=== PATIENT | male | born 1945 | race African-American/Black ===

== ENCOUNTER 2017-09-03 20:25 | Inpatient (IN) | payer MEDICARE, MEDICAID ==
[~2017-09-03] VITALS: Ht 180.3 cm; Wt 97.5 kg
[~2017-09-03 20:25] MED LIST: ABILIFY10 MG ORAL; LINDANE60 ML TP; NORVASC5 MG ORAL
[2017-09-03] MEDS ORDERED: Morphine Sulfate 4mg/ml Inj IVP ONE ×2 (20:45→23:00)
[2017-09-03 21:03] LABS: APPEARANCE,URINE CLEAR; KETONES,URINE NEGATIVE (NEGATIVE); LEUKOCYTE ESTERASE ,URINE NEGATIVE (NEGATIVE); NITRITE,URINE NEGATIVE (NEGATIVE); PH,URINE 6 (4.5-8.0); PROTEIN,URINE 3+ (NEGATIVE); UROBILINOGEN,URINE NORMAL MG/DL (0.0-1.0)
[2017-09-03 21:06] LABS: BASOPHILS % (AUTO) 0.2 % (0.0-2.0); LYMPHOCYTES % (AUTO) 10.1 % (20.0-45.0); MEAN CORPUSCULAR HEMOGLOBIN 23.6 PG (27.0-31.0); MEAN CORPUSCULAR HGB CONC 30.3 G/DL (32.0-36.0); MEAN CORPUSCULAR VOLUME 78 FL (80-99); MEAN PLATELET VOLUME 6.1 FL (6.5-10.1); MONOCYTES % (AUTO) 5.2 % (1.0-10.0); NEUTROPHILS % (AUTO) 84.6 % (45.0-75.0); PLATELET COUNT 428 K/UL (150-450); RED CELL DISTRIBUTION WIDTH 16.9 % (11.6-14.8); WHITE BLOOD COUNT 9.7 K/UL (4.8-10.8)
[2017-09-03 21:09] LABS: BACTERIA,URINE FEW /HPF; YEAST,URINE FEW /HPF
[2017-09-03 21:20] LABS: ANION GAP 12 mmol/L (5-15); CALCIUM 9.3 MG/DL (8.5-10.1); CARBON DIOXIDE 24 MMOL/L (21-32); CHLORIDE 102 MMOL/L (98-107); CREATININE 1.3 MG/DL (0.55-1.30); POTASSIUM 3.7 MMOL/L (3.5-5.1); SODIUM 138 MMOL/L (136-145)
[2017-09-03 21:24] LABS: ALANINE AMINOTRANSFERASE 45 U/L (12-78); ALBUMIN/GLOBULIN RATIO 0.8 (1.0-2.7); ASPARTATE AMINO TRANSFERASE 45 U/L (15-37); LIPASE 65 U/L (73-393); TOTAL PROTEIN 7.9 G/DL (6.4-8.2)
[2017-09-03] MEDS ORDERED: Mylanta II UD 30ml ORAL PRN (23:45)
[2017-09-03] MEDS ORDERED: Metoclopramide 10mg/2ml Inj IVP PRN (23:45)
[2017-09-03] MEDS ORDERED: Morphine Sulfate 2mg/ml Inj IVP PRN (23:45)
[2017-09-04] VITALS (7 sets, daily range): BP systolic 155–188; BP diastolic 70–101
[2017-09-04] MEDS ORDERED: Morphine Sulfate 4mg/ml Inj IVP ONE (00:15)
[2017-09-04] MEDS ORDERED: LORazepam Inj 2mg/ml 1ml IV ONE (00:15)
[2017-09-04] MEDS ORDERED: CYMBALTA30 MG ORAL (00:17)
[2017-09-04] MEDS ORDERED: DIOVAN80 MG ORAL (00:17)
[2017-09-04] MEDS: D5 1/2NS 1,000 ML IV SCH ×2 (00:21→12:53)
--- NOTE | 2017-09-04 04:26 | Emergency Room Report ---
History of Present Illness General Chief Complaint: Abdominal Pain Source: Patient Present Illness HPI Patient had laparoscopic cholecystectomy earlier this morning After that the patient had gone to [place] with urinary retention And now patient presents with increased abdominal pain Patient denies any vomiting Denies any chest pain or short of breath Pain is fairly diffuse 4/10 Denies any fevers or chills Denies any fall or trauma Allergies: Coded Allergies: No Known Allergies (Unverified , 08/18/13) Patient History Past Medical History: see triage record Pertinent Family History: none Reviewed Nursing Documentation: PMH: Agreed, PSxH: Agreed Nursing Documentation-PMH Hx Cardiac Problems: Yes Hx Hypertension: Yes Hx Cancer: No Hx Gastrointestinal Problems: Yes - CHOLECYSTECTOMY TODAY (09-03-17) Hx Neurological Problems: Yes Hx Cerebrovascular Accident: Yes Hx Dizziness: Yes Hx Syncope: Yes Hx Headaches: Yes Hx Weakness: Yes Review of Systems All Other Systems: negative except mentioned in HPI Physical Exam Vital Signs Date Time Temp Pulse Resp B/P (MAP) Pulse Ox O2 Delivery O2 Flow Rate FiO2 09/03/17 20:27 98.2 92 18 189/93 92 Room Air 09/04/17 01:04 2.0 Sp02 EP Interpretation: reviewed, normal General Appearance: well appearing, no apparent distress Head: normocephalic, atraumatic Eyes: bilateral eye PERRL, bilateral eye EOMI ENT: hearing grossly normal, normal pharynx, TMs + canals normal, uvula midline Neck: full range of motion, supple, no meningismus, no bony tend Respiratory: lungs clear, normal breath sounds, no rhonchi, no respiratory distress, no retraction, no accessory muscle use Cardiovascular #1: normal peripheral pulses, regular rate, rhythm, no edema, no gallop, no JVD, no murmur Gastrointestinal: normal bowel sounds, non tender, soft, no mass, no organomegaly, non-distended, no guarding, no hernia, no pulsatile mass, no rebound, other - Evidence of abdominal recent surgery with laparoscopic pathology Genitourinary: no CVA tenderness Musculoskeletal: normal inspection Neurologic: oriented x3, responsive, voice writing reporter III-XII nml as tested, motor strength/ tone normal, sensory intact Psychiatric: mood/affect normal Skin: normal color, no rash, warm/dry, palpation normal Lymphatic: normal inspection, no adenopathy Medical Decision Making Diagnostic Impression: Primary Impression: Abdominal pain Additional Impression: Urinary retention ER Course With the history exam and presentation, multiple differentials considered, including but not limited to appendicitis, gastritis, cholecystitis, diverticulitis Secondary abscess and infection also considered given recent instrumentation Patient's CT initially read as scattered pockets of gas and concern for perforation in the absence of recent surgery however the patient has had recent surgery Pain is significantly better controlled given the multiple comorbidities along with multiple problems after his surgery the patient is admitted for further care, Labs Test 09/03/17 20:40 09/03/17 20:55 White Blood Count 9.7 K/UL (4.8-10.8) Red Blood Count 5.30 M/UL (4.70-6.10) Hemoglobin 12.5 G/DL (14.2-18.0) Hematocrit 41.4 % (42.0-52.0) Mean Corpuscular Volume 78 FL (80-99) Mean Corpuscular Hemoglobin 23.6 PG (27.0-31.0) Mean Corpuscular Hemoglobin Concent 30.3 G/DL (32.0-36.0) Red Cell Distribution Width 16.9 % (11.6-14.8) Platelet Count 428 K/UL (150-450) Mean Platelet Volume 6.1 FL (6.5-10.1) Neutrophils (%) (Auto) 84.6 % (45.0-75.0) Lymphocytes (%) (Auto) 10.1 % (20.0-45.0) Monocytes (%) (Auto) 5.2 % (1.0-10.0) Eosinophils (%) (Auto) 0.0 % (0.0-3.0) Basophils (%) (Auto) 0.2 % (0.0-2.0) Sodium Level 138 MMOL/L (136-145) Potassium Level 3.7 MMOL/L (3.5-5.1) Chloride Level 102 MMOL/L (98-107) Carbon Dioxide Level 24 MMOL/L (21-32) Anion Gap 12 mmol/L (5-15) Blood Urea Nitrogen 12 mg/dL (7-18) Creatinine 1.3 MG/DL (0.55-1.30) Estimat Glomerular Filtration Rate mL/min (>60) Glucose Level 192 MG/DL (74-106) Calcium Level 9.3 MG/DL (8.5-10.1) Total Bilirubin 0.6 MG/DL (0.2-1.0) Aspartate Amino Transf (AST/SGOT) 45 U/L (15-37) Alanine Aminotransferase (ALT/SGPT) 45 U/L (12-78) Alkaline Phosphatase 139 U/L (46-116) Total Protein 7.9 G/DL (6.4-8.2) Albumin 3.6 G/DL (3.4-5.0) Globulin 4.3 g/dL Albumin/Globulin Ratio 0.8 (1.0-2.7) Lipase 65 U/L (73-393) Urine Color Pale yellow Urine Appearance Clear Urine pH 6 (4.5-8.0) Urine Specific [place] 1.015 (1.005-1.035) Urine Protein 3+ (NEGATIVE) Urine Glucose (UA) 1+ (NEGATIVE) Urine Ketones Negative (NEGATIVE) Urine Occult Blood 5+ (NEGATIVE) Urine Nitrite Negative (NEGATIVE) Urine Bilirubin Negative (NEGATIVE) Urine Urobilinogen Normal MG/DL (0.0-1.0) Urine Leukocyte Esterase Negative (NEGATIVE) Urine RBC 5-10 /HPF (0 - 0) Urine WBC 2-4 /HPF (0 - 0) Urine Squamous Epithelial Cells None /LPF (NONE/OCC) Urine Bacteria Few /HPF (NONE) Urine Yeast Few /HPF (NONE) Rhythm Strip Diag. Results EP Interpretation: yes Rate: 68 Rhythm: NSR, no PVC's, no ectopy Other X-Ray Diagnostic Results Other X-Ray Diagnostic Results : X-Ray ordered: abdomen # of Views/Limited Vs Complete: 2 View Indication: Pain EP Interpretation: Yes Interpretation: no dislocation, no soft tissue swelling, no fractures, nonspecific bowel gas, no sbo Impression: No acute disease Electronically Signed by: Luzma Mayers DO CT/MRI/US Diagnostic Results CT/MRI/US Diagnostic Results : Impression CT abdomen pelvis: Scattered tiny pockets of gas suggests hollow viscus perforation and abscess of recent surgery, moderate amount of posterior atelectasis, right inguinal hernia, colonic diverticulosis Last Vital Signs Date Time Temp Pulse Resp B/P (MAP) Pulse Ox O2 Delivery O2 Flow Rate FiO2 09/04/17 01:05 98.2 86 18 160/72 97 Nasal Cannula 2.0 Status: improved Disposition: ADMITTED INPATIENT Condition: Serious Referrals: NON PHYSICIAN (PCP) LUZMA MAYERS D.O. Sep 04, 2017 04:26
[2017-09-04] MEDS: ARIPiprazole 10mg tab ORAL SCH (07:48)
[2017-09-04] MEDS: Pantoprazole Inj IV SCH (07:49)
[2017-09-04] MEDS: Heparin 5000 units/ml inj SUBQ SCH ×2 (07:51→21:52)
[2017-09-04 08:12] LABS: ALANINE AMINOTRANSFERASE 47 U/L (12-78); ALBUMIN/GLOBULIN RATIO 0.9 (1.0-2.7); AMYLASE 29 U/L (25-115); ANION GAP 11 mmol/L (5-15); ASPARTATE AMINO TRANSFERASE 40 U/L (15-37); CALCIUM 9.6 MG/DL (8.5-10.1); CARBON DIOXIDE 27 MMOL/L (21-32); CHLORIDE 100 MMOL/L (98-107); LIPASE 56 U/L (73-393); SODIUM 138 MMOL/L (136-145); TOTAL PROTEIN 8.2 G/DL (6.4-8.2)
[2017-09-04 08:40] LABS: BASOPHILS % (AUTO) 0.6 % (0.0-2.0); LYMPHOCYTES % (AUTO) 16.8 % (20.0-45.0); MEAN CORPUSCULAR HEMOGLOBIN 24.4 PG (27.0-31.0); MEAN CORPUSCULAR HGB CONC 31.2 G/DL (32.0-36.0); MEAN CORPUSCULAR VOLUME 78 FL (80-99); MEAN PLATELET VOLUME 5.8 FL (6.5-10.1); MONOCYTES % (AUTO) 8.6 % (1.0-10.0); PLATELET COUNT 364 K/UL (150-450); RED BLOOD COUNT 5.59 M/UL (4.70-6.10); RED CELL DISTRIBUTION WIDTH 16.9 % (11.6-14.8); WHITE BLOOD COUNT 15.2 K/UL (4.8-10.8)
[2017-09-04] MEDS: LORazepam Inj 2mg/ml 1ml IV PRN ×2 (09:01→14:12)
[2017-09-04] MEDS: Morphine Sulfate 4mg/ml Inj IVP PRN ×2 (12:51→19:30)
--- NOTE | 2017-09-04 13:28 | Consultation ---
History of Present Illness General Date patient seen: Sep 04, 2017 Chief Complaint: Abdominal Pain Reason for Consultation: abdomina pain Present Illness HPI 72 year old male presented with abdominal pain. Patient seen, chart reviewed, history reviewed. Patient had uncomplicated elective lap erlin yesterday. was discharged home post procedure. later in evening developed lower abdominal pain and discomfort. went to [facility] for evaluation and was found to have urinary retention. june was placed and patient experienced immediate resolution. patient was sent home but while at home began to abdominal distention and pain. he came to [place] ED for evaluation. Surgery called to evaluate. Currently states he feels better but still experiencing some abdominal discomfort no n/v/f/c. no flatus or BM today. decreased appetite Allergies: Coded Allergies: No Known Allergies (Unverified , 08/18/13) Medication History Scheduled Amlodipine Besylate (Norvasc), 5 MG ORAL DAILY, (Reported) Aripiprazole* (Abilify*), 20 MG ORAL DAILY, (Reported) Duloxetine Hcl* (Cymbalta*), 30 MG ORAL DAILY, (Reported) Valsartan (Diovan), 160 MG ORAL DAILY, (Reported) Patient History History Provided By: Patient, Medical Record Healthcare decision maker Resuscitation status Full Code Advanced Directive on File Past Medical/Surgical History Past Medical/Surgical History: (1) syncope (2) Bradycardia (3) dermatitis, likely scabies (4) Urinary retention (5) Abdominal pain Review of Systems Constitutional: Denies: no symptoms, see HPI, chills, sweats, fever, malaise, weakness, other Eye: Denies: no symptoms, see HPI, eye pain, blurred vision, tearing, double vision, nose pain, nose congestion, acuity changes, discharge, other ENT: Denies: no symptoms, see HPI, ear pain, ear discharge, nose pain, nose congestion, throat pain, throat swelling, mouth pain, hearing loss, nasal discharge, other Respiratory: Denies: no symptoms, see HPI, cough, orthopnea, shortness of breath, stridor, wheezing, SON, sputum, other Cardiovascular: Denies: no symptoms, see HPI, chest pain, edema, palpitations, syncope, PND, other Gastrointestinal: Reports: abdominal pain, constipation Genitourinary: Denies: no symptoms, see HPI, discharge, dysuria, frequency, hematuria, pain, retention, incontinence, urgency, vag bleed/dc, other Musculoskeletal: Denies: no symptoms, see HPI, back pain, gout, joint pain, joint swelling, muscle pain, muscle stiffness, other Skin: Denies: no symptoms, see HPI, rash, change in color, change in hair/nails , dryness, lesions, other Psychiatric: Denies: no symptoms, see HPI, prior hx, anxiety, depressed feelings, emotional problems, SI, HI, hallucinations, other Neurological: Denies: no symptoms, see HPI, headache, numbness, paresthesia, seizure, tingling, tremors, focal weakness, syncope, dizziness, other Endocrine: Denies: no symptoms, see HPI, excessive sweating, flushing, intolerance to temperature, increased thirst, increased urine, unexplained weight loss, other Hematologic/Lymphatic: Denies: no symptoms, see HPI, anemia, blood clots, easy bleeding, easy bruising, swollen glands, diathesis, other Physical Exam General Appearance: no apparent distress, alert Lines, tubes and drains: peripheral HEENT: normocephalic, atraumatic, PERRL Neck: supple, normal inspection Respiratory/Chest: normal breath sounds, no respiratory distress, no accessory muscle use Cardiovascular/Chest: normal peripheral pulses, normal rate Abdomen: soft, no organomegaly, no mass, hypoactive bowel sounds, other - incisional tenderness. incisions c/d/i. Extremities: normal inspection Skin Exam: normal pigmentation Neurologic: alert, oriented x 3 Last 24 Hour Vital Signs Date Time Temp Pulse Resp B/P (MAP) Pulse Ox O2 Delivery O2 Flow Rate FiO2 09/04/17 12:00 Nasal Cannula 2.0 09/04/17 11:35 98.1 72 20 169/70 96 09/04/17 08:31 09/04/17 08:18 97.6 09/04/17 08:00 Nasal Cannula 2.0 09/04/17 08:00 97.9 75 21 188/85 94 09/04/17 07:49 62 172/73 09/04/17 04:00 97.6 62 18 172/73 93 Nasal Cannula 09/04/17 01:05 98.2 86 18 160/72 97 Nasal Cannula 2.0 09/04/17 01:04 98.2 84 18 160/72 97 Nasal Cannula 2.0 09/04/17 00:41 176/82 09/04/17 00:14 98.2 87 18 168/101 93 Room Air 09/03/17 20:27 98.2 92 18 189/93 92 Room Air Intake and Output 09/04/17 09/05/17 19:00 07:00 Intake Total 225 ml Balance 225 ml Intake IV Total 225 ml Laboratory Tests Test 09/03/17 20:40 09/03/17 20:55 09/04/17 07:15 White Blood Count 9.7 K/UL (4.8-10.8) 15.2 K/UL (4.8-10.8) #H Red Blood Count 5.30 M/UL (4.70-6.10) 5.59 M/UL (4.70-6.10) Hemoglobin 12.5 G/DL (14.2-18.0) L 13.6 G/DL (14.2-18.0) L Hematocrit 41.4 % (42.0-52.0) L 43.7 % (42.0-52.0) Mean Corpuscular Volume 78 FL (80-99) L 78 FL (80-99) L Mean Corpuscular Hemoglobin 23.6 PG (27.0-31.0) L 24.4 PG (27.0-31.0) L Mean Corpuscular Hemoglobin Concent 30.3 G/DL (32.0-36.0) L 31.2 G/DL (32.0-36.0) L Red Cell Distribution Width 16.9 % (11.6-14.8) H 16.9 % (11.6-14.8) H Platelet Count 428 K/UL (150-450) 364 K/UL (150-450) Mean Platelet Volume 6.1 FL (6.5-10.1) L 5.8 FL (6.5-10.1) L Neutrophils (%) (Auto) 84.6 % (45.0-75.0) H 74.0 % (45.0-75.0) Lymphocytes (%) (Auto) 10.1 % (20.0-45.0) L 16.8 % (20.0-45.0) L Monocytes (%) (Auto) 5.2 % (1.0-10.0) 8.6 % (1.0-10.0) Eosinophils (%) (Auto) 0.0 % (0.0-3.0) 0.0 % (0.0-3.0) Basophils (%) (Auto) 0.2 % (0.0-2.0) 0.6 % (0.0-2.0) Sodium Level 138 MMOL/L (136-145) 138 MMOL/L (136-145) Potassium Level 3.7 MMOL/L (3.5-5.1) 4.0 MMOL/L (3.5-5.1) Chloride Level 102 MMOL/L (98-107) 100 MMOL/L (98-107) Carbon Dioxide Level 24 MMOL/L (21-32) 27 MMOL/L (21-32) Anion Gap 12 mmol/L (5-15) 11 mmol/L (5-15) Blood Urea Nitrogen 12 mg/dL (7-18) 11 mg/dL (7-18) Creatinine 1.3 MG/DL (0.55-1.30) 1.0 MG/DL (0.55-1.30) Estimat Glomerular Filtration Rate mL/min (>60) mL/min (>60) Glucose Level 192 MG/DL (74-106) H 126 MG/DL (74-106) H Calcium Level 9.3 MG/DL (8.5-10.1) 9.6 MG/DL (8.5-10.1) Total Bilirubin 0.6 MG/DL (0.2-1.0) 0.8 MG/DL (0.2-1.0) Aspartate Amino Transf (AST/SGOT) 45 U/L (15-37) H 40 U/L (15-37) H Alanine Aminotransferase (ALT/SGPT) 45 U/L (12-78) 47 U/L (12-78) Alkaline Phosphatase 139 U/L (46-116) H 141 U/L (46-116) H Total Protein 7.9 G/DL (6.4-8.2) 8.2 G/DL (6.4-8.2) Albumin 3.6 G/DL (3.4-5.0) 3.8 G/DL (3.4-5.0) Globulin 4.3 g/dL 4.4 g/dL Albumin/Globulin Ratio 0.8 (1.0-2.7) L 0.9 (1.0-2.7) L Lipase 65 U/L (73-393) L 56 U/L (73-393) L Urine Color Pale yellow Urine Appearance Clear Urine pH 6 (4.5-8.0) Urine Specific [place] 1.015 (1.005-1.035) Urine Protein 3+ (NEGATIVE) H Urine Glucose (UA) 1+ (NEGATIVE) H Urine Ketones Negative (NEGATIVE) Urine Occult Blood 5+ (NEGATIVE) H Urine Nitrite Negative (NEGATIVE) Urine Bilirubin Negative (NEGATIVE) Urine Urobilinogen Normal MG/DL (0.0-1.0) Urine Leukocyte Esterase Negative (NEGATIVE) Urine RBC 5-10 /HPF (0 - 0) H Urine WBC 2-4 /HPF (0 - 0) Urine Squamous Epithelial Cells None /LPF (NONE/OCC) Urine Bacteria Few /HPF (NONE) Urine Yeast Few /HPF (NONE) H Activated Partial Thromboplast Time 26 SEC (23-33) Amylase Level 29 U/L (25-115) Microbiology Date/Time Source Procedure Growth Status 09/03/17 20:55 Urine,Clean Catch Urine Culture - Preliminary NO GROWTH Resulted Height (Feet): 5 Height (Inches): 11.00 Weight (Pounds): 215 Medications Current Medications Medications (Trade) Dose Ordered Sig/Ritu Route PRN Reason Start Time Stop Time Status Last Admin Dose Admin Acetaminophen (Tylenol) 650 mg Q4H PRN ORAL fever 09/03/17 23:45 10/03/17 23:44 Al Hydroxide/Mg Hydroxide (Mylanta II) 30 ml Q6H PRN ORAL dyspepsia 09/03/17 23:45 10/03/17 23:44 Amlodipine Besylate (Norvasc) 5 mg DAILY ORAL 09/04/17 09:00 10/04/17 08:59 09/04/17 07:49 Aripiprazole (Abilify) 20 mg DAILY ORAL 09/04/17 09:00 10/04/17 08:59 09/04/17 07:48 Dextrose (Dextrose 50%) STAT PRN IV Hypoglycemia 09/03/17 23:45 10/03/17 23:44 Dextrose/Sodium Chloride 1,000 ml @ 75 mls/hr [id number] IV 09/03/17 23:31 10/03/17 23:30 09/04/17 12:53 Diphenhydramine HCl (Benadryl) 25 mg Q6H PRN ORAL Itching/Pruritis 09/03/17 23:45 10/03/17 23:44 Heparin Sodium (Porcine) (Heparin 5000 units/ml) 5,000 units EVERY 12 HOURS SUBQ 09/04/17 09:00 10/04/17 08:59 09/04/17 07:51 Lorazepam (Ativan 2mg/ml 1ml) 1 mg EVERY 4 HOURS PRN IV agitation 09/03/17 23:45 09/10/17 23:44 09/04/17 09:01 Metoclopramide HCl (Reglan) 10 mg Q6H PRN IVP servere nauasea 09/03/17 23:45 10/03/17 23:44 Morphine Sulfate (Morphine Sulfate) 4 mg Q4H PRN IVP Severe Pain (Pain Scale 7-10) 09/04/17 10:15 09/11/17 10:14 09/04/17 12:51 Nitroglycerin (Ntg) 0.4 mg Q5M X 3 DOSES PRN SL Prn Chest Pain 09/03/17 23:45 10/03/17 23:44 Ondansetron HCl (Zofran) 4 mg Q6H PRN IVP Nausea & Vomiting 09/03/17 23:45 10/03/17 23:44 Pantoprazole (Protonix) 40 mg DAILY IV 09/04/17 09:00 10/04/17 08:59 09/04/17 07:49 Polyethylene Glycol (Miralax) 17 gm HSPRN PRN ORAL Constipation 09/03/17 23:45 10/03/17 23:44 Promethazine HCl (Phenergan) 25 mg EVERY 8 HOURS PRN IV refractory nausea 09/04/17 08:15 10/03/17 23:44 Temazepam (Restoril) 15 mg HSPRN PRN ORAL Insomnia 09/03/17 23:45 09/10/17 23:44 Assessment/Plan Problem List: (1) Abdominal pain Assessment & Plan: 72M with abdominal dillon. had lap erlin yesterday at outside facility. urinary retention resolved with june. now with abdominal pain. CT reviewed. given recent surgery free air is anticipated and unlikely bowel perforation. He is currently afebrile, HD stable, and exam only with incisional tenderness and mild distention. he does have hypoactive bowel sounds. leukocytosis likely reactive post op. likely ileus post op -NPO -IV fluids -ambulate and OOB -await return of bowel function. -repeat labs in am thank you for this consult. will follow with recs. ICD Codes: R10.9 - Abdominal pain SNOMED: 53822727 Status: stable ShashiMarcel arroyo Sep 04, 2017 13:28
--- NOTE | 2017-09-04 14:27 | History and Physical ---
History of Present Illness General Date patient seen: Sep 04, 2017 Reason for Hospitalization: Abdominal Pain Present Illness HPI 72 year old male with hx of HTN, psychosis had laparoscopic cholecystectomy yesterday morning After that the patient had gone to [place] with urinary retention, where he got a [place] then he presented [place] [facility] [place] with increased abdominal pain. Pt is admitted for intractable abdominal pain. Allergies: Coded Allergies: No Known Allergies (Unverified , 08/18/13) Medication History Scheduled Amlodipine Besylate (Norvasc), 5 MG ORAL DAILY, (Reported) Aripiprazole* (Abilify*), 20 MG ORAL DAILY, (Reported) Duloxetine Hcl* (Cymbalta*), 30 MG ORAL DAILY, (Reported) Valsartan (Diovan), 160 MG ORAL DAILY, (Reported) Patient History Healthcare decision maker Resuscitation status Full Code Advanced Directive on File Past Medical/Surgical History Past Medical/Surgical History: (1) HTN (hypertension) (2) Psychosis Review of Systems Gastrointestinal: Reports: abdominal pain, vomiting Physical Exam General Appearance: WD/WN Lines, tubes and drains: peripheral, central line HEENT: normocephalic, atraumatic Neck: non-tender, supple Respiratory/Chest: chest wall non-tender, lungs clear Cardiovascular/Chest: normal peripheral pulses, normal rate, regularly irregular Abdomen: normal bowel sounds, non tender Last 24 Hour Vital Signs Date Time Temp Pulse Resp B/P (MAP) Pulse Ox O2 Delivery O2 Flow Rate FiO2 09/04/17 13:21 98.1 09/04/17 12:00 Nasal Cannula 2.0 09/04/17 11:35 98.1 72 20 169/70 96 09/04/17 10:20 96 Nasal Cannula 2.0 28 09/04/17 10:20 Nasal Cannula 2.0 28 09/04/17 08:31 09/04/17 08:18 97.6 09/04/17 08:00 Nasal Cannula 2.0 09/04/17 08:00 97.9 75 21 188/85 94 09/04/17 07:49 62 172/73 09/04/17 04:00 97.6 62 18 172/73 93 Nasal Cannula 09/04/17 01:05 98.2 86 18 160/72 97 Nasal Cannula 2.0 09/04/17 01:04 98.2 84 18 160/72 97 Nasal Cannula 2.0 09/04/17 00:41 176/82 09/04/17 00:14 98.2 87 18 168/101 93 Room Air 09/03/17 20:27 98.2 92 18 189/93 92 Room Air Intake and Output 09/04/17 09/05/17 19:00 07:00 Intake Total 300 ml Output Total 700 ml Balance -400 ml Intake IV Total 300 ml Output Urine Total 700 ml Laboratory Tests Test 09/03/17 20:40 09/03/17 20:55 09/04/17 07:15 White Blood Count 9.7 K/UL (4.8-10.8) 15.2 K/UL (4.8-10.8) #H Red Blood Count 5.30 M/UL (4.70-6.10) 5.59 M/UL (4.70-6.10) Hemoglobin 12.5 G/DL (14.2-18.0) L 13.6 G/DL (14.2-18.0) L Hematocrit 41.4 % (42.0-52.0) L 43.7 % (42.0-52.0) Mean Corpuscular Volume 78 FL (80-99) L 78 FL (80-99) L Mean Corpuscular Hemoglobin 23.6 PG (27.0-31.0) L 24.4 PG (27.0-31.0) L Mean Corpuscular Hemoglobin Concent 30.3 G/DL (32.0-36.0) L 31.2 G/DL (32.0-36.0) L Red Cell Distribution Width 16.9 % (11.6-14.8) H 16.9 % (11.6-14.8) H Platelet Count 428 K/UL (150-450) 364 K/UL (150-450) Mean Platelet Volume 6.1 FL (6.5-10.1) L 5.8 FL (6.5-10.1) L Neutrophils (%) (Auto) 84.6 % (45.0-75.0) H 74.0 % (45.0-75.0) Lymphocytes (%) (Auto) 10.1 % (20.0-45.0) L 16.8 % (20.0-45.0) L Monocytes (%) (Auto) 5.2 % (1.0-10.0) 8.6 % (1.0-10.0) Eosinophils (%) (Auto) 0.0 % (0.0-3.0) 0.0 % (0.0-3.0) Basophils (%) (Auto) 0.2 % (0.0-2.0) 0.6 % (0.0-2.0) Sodium Level 138 MMOL/L (136-145) 138 MMOL/L (136-145) Potassium Level 3.7 MMOL/L (3.5-5.1) 4.0 MMOL/L (3.5-5.1) Chloride Level 102 MMOL/L (98-107) 100 MMOL/L (98-107) Carbon Dioxide Level 24 MMOL/L (21-32) 27 MMOL/L (21-32) Anion Gap 12 mmol/L (5-15) 11 mmol/L (5-15) Blood Urea Nitrogen 12 mg/dL (7-18) 11 mg/dL (7-18) Creatinine 1.3 MG/DL (0.55-1.30) 1.0 MG/DL (0.55-1.30) Estimat Glomerular Filtration Rate mL/min (>60) mL/min (>60) Glucose Level 192 MG/DL (74-106) H 126 MG/DL (74-106) H Calcium Level 9.3 MG/DL (8.5-10.1) 9.6 MG/DL (8.5-10.1) Total Bilirubin 0.6 MG/DL (0.2-1.0) 0.8 MG/DL (0.2-1.0) Aspartate Amino Transf (AST/SGOT) 45 U/L (15-37) H 40 U/L (15-37) H Alanine Aminotransferase (ALT/SGPT) 45 U/L (12-78) 47 U/L (12-78) Alkaline Phosphatase 139 U/L (46-116) H 141 U/L (46-116) H Total Protein 7.9 G/DL (6.4-8.2) 8.2 G/DL (6.4-8.2) Albumin 3.6 G/DL (3.4-5.0) 3.8 G/DL (3.4-5.0) Globulin 4.3 g/dL 4.4 g/dL Albumin/Globulin Ratio 0.8 (1.0-2.7) L 0.9 (1.0-2.7) L Lipase 65 U/L (73-393) L 56 U/L (73-393) L Urine Color Pale yellow Urine Appearance Clear Urine pH 6 (4.5-8.0) Urine Specific [place] 1.015 (1.005-1.035) Urine Protein 3+ (NEGATIVE) H Urine Glucose (UA) 1+ (NEGATIVE) H Urine Ketones Negative (NEGATIVE) Urine Occult Blood 5+ (NEGATIVE) H Urine Nitrite Negative (NEGATIVE) Urine Bilirubin Negative (NEGATIVE) Urine Urobilinogen Normal MG/DL (0.0-1.0) Urine Leukocyte Esterase Negative (NEGATIVE) Urine RBC 5-10 /HPF (0 - 0) H Urine WBC 2-4 /HPF (0 - 0) Urine Squamous Epithelial Cells None /LPF (NONE/OCC) Urine Bacteria Few /HPF (NONE) Urine Yeast Few /HPF (NONE) H Activated Partial Thromboplast Time 26 SEC (23-33) Amylase Level 29 U/L (25-115) Microbiology Date/Time Source Procedure Growth Status 09/03/17 20:55 Urine,Clean Catch Urine Culture - Preliminary NO GROWTH Resulted Height (Feet): 5 Height (Inches): 11.00 Weight (Pounds): 215 Medications Current Medications Medications (Trade) Dose Ordered Sig/Ritu Route PRN Reason Start Time Stop Time Status Last Admin Dose Admin Acetaminophen (Tylenol) 650 mg Q4H PRN ORAL fever 09/03/17 23:45 10/03/17 23:44 Al Hydroxide/Mg Hydroxide (Mylanta II) 30 ml Q6H PRN ORAL dyspepsia 09/03/17 23:45 10/03/17 23:44 Amlodipine Besylate (Norvasc) 5 mg DAILY ORAL 09/04/17 09:00 10/04/17 08:59 09/04/17 07:49 Aripiprazole (Abilify) 20 mg DAILY ORAL 09/04/17 09:00 10/04/17 08:59 09/04/17 07:48 Dextrose (Dextrose 50%) STAT PRN IV Hypoglycemia 09/03/17 23:45 10/03/17 23:44 Dextrose/Sodium Chloride 1,000 ml @ 75 mls/hr [id number] IV 09/03/17 23:31 10/03/17 23:30 09/04/17 12:53 Diphenhydramine HCl (Benadryl) 25 mg Q6H PRN ORAL Itching/Pruritis 09/03/17 23:45 10/03/17 23:44 Heparin Sodium (Porcine) (Heparin 5000 units/ml) 5,000 units EVERY 12 HOURS SUBQ 09/04/17 09:00 10/04/17 08:59 09/04/17 07:51 Lorazepam (Ativan 2mg/ml 1ml) 1 mg EVERY 4 HOURS PRN IV agitation 09/03/17 23:45 09/10/17 23:44 09/04/17 14:12 Metoclopramide HCl (Reglan) 10 mg Q6H PRN IVP servere nauasea 09/03/17 23:45 10/03/17 23:44 Morphine Sulfate (Morphine Sulfate) 4 mg Q4H PRN IVP Severe Pain (Pain Scale 7-10) 09/04/17 10:15 09/11/17 10:14 09/04/17 12:51 Nitroglycerin (Ntg) 0.4 mg Q5M X 3 DOSES PRN SL Prn Chest Pain 09/03/17 23:45 10/03/17 23:44 Ondansetron HCl (Zofran) 4 mg Q6H PRN IVP Nausea & Vomiting 09/03/17 23:45 10/03/17 23:44 Pantoprazole (Protonix) 40 mg DAILY IV 09/04/17 09:00 10/04/17 08:59 09/04/17 07:49 Polyethylene Glycol (Miralax) 17 gm HSPRN PRN ORAL Constipation 09/03/17 23:45 10/03/17 23:44 Promethazine HCl (Phenergan) 25 mg EVERY 8 HOURS PRN IV refractory nausea 09/04/17 08:15 10/03/17 23:44 Temazepam (Restoril) 15 mg HSPRN PRN ORAL Insomnia 09/03/17 23:45 09/10/17 23:44 Assessment/Plan Problem List: (1) Hx laparoscopic cholecystectomy ICD Codes: Z90.49 - Acquired absence of other specified parts of digestive tract SNOMED: 670301244 (2) Urinary retention ICD Codes: R33.9 - Retention of urine, unspecified SNOMED: 052354105 (3) Abdominal pain ICD Codes: R10.9 - Abdominal pain SNOMED: 59467851 (4) Psychosis ICD Codes: F29 - Unspecified psychosis not due to a substance or known physiological condition SNOMED: 74758009 (5) HTN (hypertension) ICD Codes: I10 - Essential (primary) hypertension SNOMED: 95393628 Assessment/Plan NPO GI and surgery evaluation symptomatic treatment check electrolytes IV fluids RHONDA AMOR Sep 04, 2017 14:27
[2017-09-04] MEDS: Ketorolac 30mg Inj IV PRN ×2 (14:35→21:48)
[2017-09-04 15:45] LABS: BASOPHILS % (AUTO) 0.4 % (0.0-2.0); LYMPHOCYTES % (AUTO) 7.9 % (20.0-45.0); MEAN CORPUSCULAR HEMOGLOBIN 24.5 PG (27.0-31.0); MEAN CORPUSCULAR HGB CONC 31.8 G/DL (32.0-36.0); MEAN CORPUSCULAR VOLUME 77 FL (80-99); MEAN PLATELET VOLUME 6.7 FL (6.5-10.1); MONOCYTES % (AUTO) 9.2 % (1.0-10.0); NEUTROPHILS % (AUTO) 82.4 % (45.0-75.0); PLATELET COUNT 418 K/UL (150-450); RED BLOOD COUNT 5.26 M/UL (4.70-6.10); RED CELL DISTRIBUTION WIDTH 16.9 % (11.6-14.8); WHITE BLOOD COUNT 14.3 K/UL (4.8-10.8)
--- NOTE | 2017-09-04 15:55 | GI Initial Consult Note ---
Barbi Matson N.P. 09/04/17 1555: History of Present Illness General Date patient seen: Sep 04, 2017 Time patient seen: 15:48 Reason for Hospitalization: Abdominal Pain Referring physician: RHONDA MEJIA Reason for Consultation: abdomina pain Present Illness HPI 72 year old male presented with abdominal pain. Patient seen, chart reviewed, history reviewed. Patient had uncomplicated elective lap erlin yesterday. was discharged home post procedure. later in evening developed lower abdominal pain and discomfort. went to [facility] for evaluation and was found to have urinary retention. june was placed and patient experienced immediate resolution. patient was sent home but while at home began to abdominal distention and pain. he came to [facility] for evaluation. Surgery called to evaluate. Currently states he feels better but still experiencing some abdominal discomfort no n/v/f/c. no flatus or BM today. decreased appetite GI consulted for abdominal pain. HPI as noted above. Pt seen on floor, awake A&Ox4 NAD with no active s/sx of N/V/D. Noted distend abdomen, tender to touch. S/p lap erlin. AP CT noted to have hollow viscous perforation. Allergies: Coded Allergies: No Known Allergies (Unverified , 08/18/13) Medication History Scheduled Amlodipine Besylate (Norvasc), 5 MG ORAL DAILY, (Reported) Aripiprazole* (Abilify*), 20 MG ORAL DAILY, (Reported) Duloxetine Hcl* (Cymbalta*), 30 MG ORAL DAILY, (Reported) Valsartan (Diovan), 160 MG ORAL DAILY, (Reported) Patient History History Provided By: Patient, Medical Record Healthcare decision maker Resuscitation status Full Code Advanced Directive on File Past Medical/Surgical History Past Medical/Surgical History: (1) syncope (2) Bradycardia (3) dermatitis, likely scabies (4) Urinary retention (5) Abdominal pain Home Meds Reported Medications Duloxetine Hcl* (CYMBALTA*) 30 Mg Capsule.dr, 30 MG ORAL DAILY, CAP 09/04/17 Valsartan (DIOVAN) 80 Mg Tab, 160 MG ORAL DAILY, TAB 09/04/17 Amlodipine Besylate (Norvasc) 5 Mg Tab, 5 MG ORAL DAILY, TAB 10/19/13 Aripiprazole* (ABILIFY*) 10 Mg Tablet, 20 MG ORAL DAILY, TAB 10/19/13 Med list reviewed/reconciled: Yes Allergies: Coded Allergies: No Known Allergies (Unverified , 08/18/13) Patient History History Provided By: Patient, Medical Record Review of Systems All Other Systems: negative except mentioned in HPI Physical Exam Vital Signs Date Time Temp Pulse Resp B/P (MAP) Pulse Ox O2 Delivery O2 Flow Rate FiO2 09/03/17 20:27 98.2 92 18 189/93 92 Room Air 09/04/17 01:04 2.0 09/04/17 10:20 28 Sp02 EP Interpretation: reviewed, normal Labs Laboratory Tests Test 09/03/17 20:40 09/03/17 20:55 09/04/17 07:15 09/04/17 15:15 White Blood Count 9.7 K/UL (4.8-10.8) 15.2 K/UL (4.8-10.8) #H 14.3 K/UL (4.8-10.8) H Red Blood Count 5.30 M/UL (4.70-6.10) 5.59 M/UL (4.70-6.10) 5.26 M/UL (4.70-6.10) Hemoglobin 12.5 G/DL (14.2-18.0) L 13.6 G/DL (14.2-18.0) L 12.9 G/DL (14.2-18.0) L Hematocrit 41.4 % (42.0-52.0) L 43.7 % (42.0-52.0) 40.6 % (42.0-52.0) L Mean Corpuscular Volume 78 FL (80-99) L 78 FL (80-99) L 77 FL (80-99) L Mean Corpuscular Hemoglobin 23.6 PG (27.0-31.0) L 24.4 PG (27.0-31.0) L 24.5 PG (27.0-31.0) L Mean Corpuscular Hemoglobin Concent 30.3 G/DL (32.0-36.0) L 31.2 G/DL (32.0-36.0) L 31.8 G/DL (32.0-36.0) L Red Cell Distribution Width 16.9 % (11.6-14.8) H 16.9 % (11.6-14.8) H 16.9 % (11.6-14.8) H Platelet Count 428 K/UL (150-450) 364 K/UL (150-450) 418 K/UL (150-450) Mean Platelet Volume 6.1 FL (6.5-10.1) L 5.8 FL (6.5-10.1) L 6.7 FL (6.5-10.1) Neutrophils (%) (Auto) 84.6 % (45.0-75.0) H 74.0 % (45.0-75.0) 82.4 % (45.0-75.0) H Lymphocytes (%) (Auto) 10.1 % (20.0-45.0) L 16.8 % (20.0-45.0) L 7.9 % (20.0-45.0) L Monocytes (%) (Auto) 5.2 % (1.0-10.0) 8.6 % (1.0-10.0) 9.2 % (1.0-10.0) Eosinophils (%) (Auto) 0.0 % (0.0-3.0) 0.0 % (0.0-3.0) 0.0 % (0.0-3.0) Basophils (%) (Auto) 0.2 % (0.0-2.0) 0.6 % (0.0-2.0) 0.4 % (0.0-2.0) Sodium Level 138 MMOL/L (136-145) 138 MMOL/L (136-145) Potassium Level 3.7 MMOL/L (3.5-5.1) 4.0 MMOL/L (3.5-5.1) Chloride Level 102 MMOL/L (98-107) 100 MMOL/L (98-107) Carbon Dioxide Level 24 MMOL/L (21-32) 27 MMOL/L (21-32) Anion Gap 12 mmol/L (5-15) 11 mmol/L (5-15) Blood Urea Nitrogen 12 mg/dL (7-18) 11 mg/dL (7-18) Creatinine 1.3 MG/DL (0.55-1.30) 1.0 MG/DL (0.55-1.30) Estimat Glomerular Filtration Rate mL/min (>60) mL/min (>60) Glucose Level 192 MG/DL (74-106) H 126 MG/DL (74-106) H Calcium Level 9.3 MG/DL (8.5-10.1) 9.6 MG/DL (8.5-10.1) Total Bilirubin 0.6 MG/DL (0.2-1.0) 0.8 MG/DL (0.2-1.0) Aspartate Amino Transf (AST/SGOT) 45 U/L (15-37) H 40 U/L (15-37) H Alanine Aminotransferase (ALT/SGPT) 45 U/L (12-78) 47 U/L (12-78) Alkaline Phosphatase 139 U/L (46-116) H 141 U/L (46-116) H Total Protein 7.9 G/DL (6.4-8.2) 8.2 G/DL (6.4-8.2) Albumin 3.6 G/DL (3.4-5.0) 3.8 G/DL (3.4-5.0) Globulin 4.3 g/dL 4.4 g/dL Albumin/Globulin Ratio 0.8 (1.0-2.7) L 0.9 (1.0-2.7) L Lipase 65 U/L (73-393) L 56 U/L (73-393) L Urine Color Pale yellow Urine Appearance Clear Urine pH 6 (4.5-8.0) Urine Specific [place] 1.015 (1.005-1.035) Urine Protein 3+ (NEGATIVE) H Urine Glucose (UA) 1+ (NEGATIVE) H Urine Ketones Negative (NEGATIVE) Urine Occult Blood 5+ (NEGATIVE) H Urine Nitrite Negative (NEGATIVE) Urine Bilirubin Negative (NEGATIVE) Urine Urobilinogen Normal MG/DL (0.0-1.0) Urine Leukocyte Esterase Negative (NEGATIVE) Urine RBC 5-10 /HPF (0 - 0) H Urine WBC 2-4 /HPF (0 - 0) Urine Squamous Epithelial Cells None /LPF (NONE/OCC) Urine Bacteria Few /HPF (NONE) Urine Yeast Few /HPF (NONE) H Activated Partial Thromboplast Time 26 SEC (23-33) Amylase Level 29 U/L (25-115) Lactic Acid Level Pending General Appearance: well appearing, no apparent distress, alert Head: normocephalic EENT: PERRL/EOMI, normal ENT inspection Neck: supple Respiratory: normal breath sounds, no respiratory distress Cardiovascular: normal rate Gastrointestinal: normal inspection, non tender, soft, normal bowel sounds, non -distended, other - surgical incision Rectal: deferred Genitourinary: deferred Musculoskeletal: normal inspection, back normal Neurologic: normal inspection, alert, oriented x3, responsive Psychiatric: normal inspection, judgement/insight normal, memory normal Skin: normal inspection, normal color, no rash, warm/dry, palpation normal, well hydrated Lymphatic: normal inspection, no adenopathy Current Medications Current Medications Medications (Trade) Dose Ordered Sig/Ritu Route PRN Reason Start Time Stop Time Status Last Admin Dose Admin Acetaminophen (Tylenol) 650 mg Q4H PRN ORAL fever 09/03/17 23:45 10/03/17 23:44 Al Hydroxide/Mg Hydroxide (Mylanta II) 30 ml Q6H PRN ORAL dyspepsia 09/03/17 23:45 10/03/17 23:44 Amlodipine Besylate (Norvasc) 5 mg DAILY ORAL 09/04/17 09:00 10/04/17 08:59 09/04/17 07:49 Aripiprazole (Abilify) 20 mg DAILY ORAL 09/04/17 09:00 10/04/17 08:59 09/04/17 07:48 Dextrose (Dextrose 50%) STAT PRN IV Hypoglycemia 09/03/17 23:45 10/03/17 23:44 Dextrose/Sodium Chloride 1,000 ml @ 75 mls/hr [id number] IV 09/03/17 23:31 10/03/17 23:30 09/04/17 12:53 Diphenhydramine HCl (Benadryl) 25 mg Q6H PRN ORAL Itching/Pruritis 09/03/17 23:45 10/03/17 23:44 Heparin Sodium (Porcine) (Heparin 5000 units/ml) 5,000 units EVERY 12 HOURS SUBQ 09/04/17 09:00 10/04/17 08:59 09/04/17 07:51 Ketorolac Tromethamine (Toradol 30mg) 15 mg Q6H PRN IV Moderate Pain (Pain Scale 4-6) 09/04/17 14:30 09/09/17 14:29 09/04/17 14:35 Lorazepam (Ativan 2mg/ml 1ml) 1 mg EVERY 4 HOURS PRN IV agitation 09/03/17 23:45 09/10/17 23:44 09/04/17 14:12 Metoclopramide HCl (Reglan) 10 mg Q6H PRN IVP servere naraulsea 09/03/17 23:45 10/03/17 23:44 Morphine Sulfate (Morphine Sulfate) 4 mg Q4H PRN IVP Severe Pain (Pain Scale 7-10) 09/04/17 10:15 09/11/17 10:14 09/04/17 12:51 Nitroglycerin (Ntg) 0.4 mg Q5M X 3 DOSES PRN SL Prn Chest Pain 09/03/17 23:45 10/03/17 23:44 Ondansetron HCl (Zofran) 4 mg Q6H PRN IVP Nausea & Vomiting 09/03/17 23:45 10/03/17 23:44 Pantoprazole (Protonix) 40 mg DAILY IV 09/04/17 09:00 10/04/17 08:59 09/04/17 07:49 Polyethylene Glycol (Miralax) 17 gm HSPRN PRN ORAL Constipation 09/03/17 23:45 10/03/17 23:44 Promethazine HCl (Phenergan) 25 mg EVERY 8 HOURS PRN IV refractory nausea 09/04/17 08:15 10/03/17 23:44 Temazepam (Restoril) 15 mg HSPRN PRN ORAL Insomnia 09/03/17 23:45 09/10/17 23:44 GI: Plan Problems: (1) Perforated abdominal viscus (2) Leukocytosis (3) Abdominal pain (4) Hx laparoscopic cholecystectomy (5) Ileus, postoperative Plan fu surgical recs non operative management bowel rest, NPO + IV fluids electrolyte replacement ambulate and OOB pain mgmt imaging studies prn await return of bowel function. repeat labs in am Discussed with Dr. Tyler. Thank you for this patient referral, we will follow. AKIL TYLER 09/05/17 4221: History of Present Illness General Reason for Hospitalization: Abdominal Pain Present Illness Home Meds Reported Medications Duloxetine Hcl* (CYMBALTA*) 30 Mg Capsule.dr, 30 MG ORAL DAILY, CAP 09/04/17 Valsartan (DIOVAN) 80 Mg Tab, 160 MG ORAL DAILY, TAB 09/04/17 Amlodipine Besylate (Norvasc) 5 Mg Tab, 5 MG ORAL DAILY, TAB 10/19/13 Aripiprazole* (ABILIFY*) 10 Mg Tablet, 20 MG ORAL DAILY, TAB 10/19/13 Allergies: Coded Allergies: No Known Allergies (Unverified , 08/18/13) GI: Plan Plan The patient was seen and examined at bedside and all new and available data was reviewed in the patients chart. I agree with the above findings, impression and plan. (Patient seen earlier today. Signature stamp does not reflect patient encounter time.). - MD Huyen Vásquez Anh Horacio Flores Sep 04, 2017 15:55 AKIL TYLER Sep 05, 2017 12:44
[2017-09-04] MEDS ORDERED: Hydromorphone 0.5mg/0.5ml inj IVP ONE (17:05)
--- NOTE | 2017-09-04 20:28 | General Progress Note ---
Progress Note Progress Note surgery: returned to evaluate patient this evening. he has been asking for pain medication consistently when he wakes up from sleep. sleeps well but when he wakes he states lots of pain and needs pain medication. states he is okay right now but at times pain is significant. on exam he agrees that tenderness has improved. no n/v/f/c. +flatus. afebrile, HD stable, no tachycardia, VSS, repeat labs improved. will likely start trail diet tomorrow and if all well d/c tomorrow. I discussed this plan with patient. he expressed that he would very much need a prescription for pain medication upon discharge. when asked, patient states that he was not given any Rx after his surgery and does not have any pain medication at home nor did he have anything after surgery. I'm not sure about this but it is possible as it is also possible that there may have been a misunderstanding or loss of Rx. but if patient did not have anything after surgery I'm not surprised that he was in pain the evening of surgery requiring him to return to ED and this would explain history. will continue to monitor. if stable and improved tomorrow will start diet and plan for d/c will write Rx if needed. continue with current care and management. Marcel Thompson Sep 04, 2017 20:28
[2017-09-05] VITALS (9 sets, daily range): BP systolic 110–212; BP diastolic 59–128
[2017-09-05] MEDS: D5 1/2NS 1,000 ML IV SCH ×2 (00:39→15:31)
[2017-09-05] MEDS: Morphine Sulfate 4mg/ml Inj IVP PRN ×4 (00:39→19:39)
[2017-09-05 08:06] LABS: BASOPHILS % (AUTO) 0.6 % (0.0-2.0); EOSINOPHILS % (AUTO) 0.3 % (0.0-3.0); LYMPHOCYTES % (AUTO) 16.5 % (20.0-45.0); MEAN CORPUSCULAR HEMOGLOBIN 23.2 PG (27.0-31.0); MEAN CORPUSCULAR HGB CONC 29.5 G/DL (32.0-36.0); MEAN CORPUSCULAR VOLUME 78 FL (80-99); MEAN PLATELET VOLUME 6.6 FL (6.5-10.1); MONOCYTES % (AUTO) 8.2 % (1.0-10.0); NEUTROPHILS % (AUTO) 74.6 % (45.0-75.0); PLATELET COUNT 381 K/UL (150-450); RED BLOOD COUNT 5.25 M/UL (4.70-6.10); RED CELL DISTRIBUTION WIDTH 16.5 % (11.6-14.8); WHITE BLOOD COUNT 11.3 K/UL (4.8-10.8)
[2017-09-05 08:19] LABS: AMYLASE 35 U/L (25-115); LIPASE 71 U/L (73-393)
[2017-09-05 08:26] LABS: ALANINE AMINOTRANSFERASE 36 U/L (12-78); ALBUMIN/GLOBULIN RATIO 0.8 (1.0-2.7); ANION GAP 11 mmol/L (5-15); ASPARTATE AMINO TRANSFERASE 23 U/L (15-37); CALCIUM 9.1 MG/DL (8.5-10.1); CARBON DIOXIDE 27 MMOL/L (21-32); CHLORIDE 99 MMOL/L (98-107); POTASSIUM 3.8 MMOL/L (3.5-5.1); SODIUM 137 MMOL/L (136-145); TOTAL PROTEIN 7.5 G/DL (6.4-8.2)
[2017-09-05] MEDS: Pantoprazole Inj IV SCH (08:30)
[2017-09-05] MEDS: ARIPiprazole 10mg tab ORAL SCH (08:30)
[2017-09-05] MEDS: Heparin 5000 units/ml inj SUBQ SCH ×2 (08:32→20:28)
[2017-09-05 08:53] LABS: BILIRUBIN,DIRECT 0.4 MG/DL (0.0-0.3)
--- NOTE | 2017-09-05 10:27 | GI Progress Note ---
Assessment/Plan Problems: (1) Perforated abdominal viscus SNOMED: 941100544 (2) Ileus, postoperative ICD Codes: K91.89 - Other postprocedural complications and disorders of digestive system; K56.7 - Ileus, unspecified SNOMED: 490493041 (3) Abdominal pain ICD Codes: R10.9 - Abdominal pain SNOMED: 44707144 Status: progressing Status Narrative Discussed with Dr. Veloz. Assessment/Plan fu surgical recs non operative management CLD, adv per surgery electrolyte replacement ambulate and OOB pain mgmt imaging studies prn await return of bowel function. repeat labs in am The patient was seen and examined at bedside and all new and available data was reviewed in the patients chart. I agree with the above findings, impression and plan. (Patient seen earlier today. Signature stamp does not reflect patient encounter time.). - Sonny Veloz MD Subjective Subjective abdominal pain better, but still present Objective Last 24 Hour Vital Signs Date Time Temp Pulse Resp B/P (MAP) Pulse Ox O2 Delivery O2 Flow Rate FiO2 09/05/17 09:47 98.2 09/05/17 08:31 74 166/96 09/05/17 08:00 98.2 74 20 160/96 98 09/05/17 04:00 99.1 85 18 142/59 98 Nasal Cannula 2.0 09/05/17 00:12 Nasal Cannula 2.0 09/05/17 00:11 98.8 85 18 146/77 98 09/04/17 21:14 Nasal Cannula 2.0 28 09/04/17 21:14 97 Nasal Cannula 2.0 28 09/04/17 20:01 Nasal Cannula 2.0 09/04/17 20:00 98.0 77 18 155/70 96 09/04/17 18:40 98.2 09/04/17 18:09 184/96 09/04/17 16:00 98.2 72 20 184/96 99 09/04/17 15:05 98.1 09/04/17 12:00 Nasal Cannula 2.0 09/04/17 11:35 98.1 72 20 169/70 96 Intake and Output 09/05/17 09/06/17 19:00 07:00 Intake Total 465 ml Balance 465 ml Intake Oral 240 ml IV Total 225 ml Laboratory Tests Test 09/04/17 15:15 09/05/17 06:45 White Blood Count 14.3 K/UL (4.8-10.8) H 11.3 K/UL (4.8-10.8) H Red Blood Count 5.26 M/UL (4.70-6.10) 5.25 M/UL (4.70-6.10) Hemoglobin 12.9 G/DL (14.2-18.0) L 12.2 G/DL (14.2-18.0) L Hematocrit 40.6 % (42.0-52.0) L 41.2 % (42.0-52.0) L Mean Corpuscular Volume 77 FL (80-99) L 78 FL (80-99) L Mean Corpuscular Hemoglobin 24.5 PG (27.0-31.0) L 23.2 PG (27.0-31.0) L Mean Corpuscular Hemoglobin Concent 31.8 G/DL (32.0-36.0) L 29.5 G/DL (32.0-36.0) L Red Cell Distribution Width 16.9 % (11.6-14.8) H 16.5 % (11.6-14.8) H Platelet Count 418 K/UL (150-450) 381 K/UL (150-450) Mean Platelet Volume 6.7 FL (6.5-10.1) 6.6 FL (6.5-10.1) Neutrophils (%) (Auto) 82.4 % (45.0-75.0) H 74.6 % (45.0-75.0) Lymphocytes (%) (Auto) 7.9 % (20.0-45.0) L 16.5 % (20.0-45.0) L Monocytes (%) (Auto) 9.2 % (1.0-10.0) 8.2 % (1.0-10.0) Eosinophils (%) (Auto) 0.0 % (0.0-3.0) 0.3 % (0.0-3.0) Basophils (%) (Auto) 0.4 % (0.0-2.0) 0.6 % (0.0-2.0) Lactic Acid Level 1.20 mmol/L (0.66-2.22) Sodium Level 137 MMOL/L (136-145) Potassium Level 3.8 MMOL/L (3.5-5.1) Chloride Level 99 MMOL/L (98-107) Carbon Dioxide Level 27 MMOL/L (21-32) Anion Gap 11 mmol/L (5-15) Blood Urea Nitrogen 13 mg/dL (7-18) Creatinine 1.0 MG/DL (0.55-1.30) Estimat Glomerular Filtration Rate mL/min (>60) Glucose Level 100 MG/DL (74-106) Calcium Level 9.1 MG/DL (8.5-10.1) Total Bilirubin 1.5 MG/DL (0.2-1.0) H Direct Bilirubin 0.4 MG/DL (0.0-0.3) H Aspartate Amino Transf (AST/SGOT) 23 U/L (15-37) Alanine Aminotransferase (ALT/SGPT) 36 U/L (12-78) Alkaline Phosphatase 138 U/L (46-116) H Total Protein 7.5 G/DL (6.4-8.2) Albumin 3.3 G/DL (3.4-5.0) L Globulin 4.2 g/dL Albumin/Globulin Ratio 0.8 (1.0-2.7) L Amylase Level 35 U/L (25-115) Lipase 71 U/L (73-393) L Height (Feet): 5 Height (Inches): 11.00 Weight (Pounds): 215 General Appearance: WD/WN, no apparent distress, alert Cardiovascular: normal rate Respiratory/Chest: normal breath sounds, no respiratory distress Abdominal Exam: normal bowel sounds, non tender, soft, tender Extremities: normal range of motion, non-tender Barbi Matson N.PMarilu Sep 05, 2017 10:27 AKIL VELOZ Sep 05, 2017 12:46
--- NOTE | 2017-09-05 12:01 | Diagnostic Imaging Report ---
Indication: Abdominal pain, nausea, abnormal liver function tests Technique: Duval-scale and duplex images of the upper abdomen were obtained Comparison: None. Reference made to abdomen pelvis CT 09/03/2017 Findings: Gallbladder is surgically absent. Common bile duct measures 9 mm in diameter. No intrahepatic biliary ductal dilatation. Liver demonstrates normal echogenicity, no focal abnormality. Portal vein and hepatic veins are patent. Pancreas is unremarkable. Spleen is unremarkable. Left kidney measures 11.6 cm in length. Right kidney measures 12 cm length. Both kidneys demonstrate normal echogenicity. There is no hydronephrosis. No focal abnormality . Non-aneurysmal abdominal aorta . Impression: Surgically absent gallbladder Mildly dilated common bile duct, most likely related to age and postcholecystectomy state. Downstream obstruction not completely excludable, however, and correlation with liver function tests is recommended. No other significant findings
[2017-09-05] MEDS: Ketorolac 30mg Inj IV PRN ×2 (12:23→12:26)
[2017-09-05] MEDS: Nitroglycerin Subl 0.4mg tab SL PRN ×2 (12:39→12:50)
--- NOTE | 2017-09-05 14:03 | Wound Care Consultation ---
Wound Assessment Wound Assessment : Wound Number: 1 Wound Present on Admission: Yes New Wound: No Status Change of Wound: No Wound Location Body Site Modif: mid Wound Location Body Site: sacral Wound Type: pressure ulcer Hailey Test: Does not Hailey Pressure Ulcer Stage: I Wound Length: 1.0 Wound Width: 0.3 Percent of Wound [place]/Red: 100 Wound Drainage Amount: None Wound Drainage Odor: None/Absent Tissue Surrounding Wound: Erythemic Wound General Appearance: Reddened Wound Comment #1 Mid Sacral pressure ulcer stage 1 Recommendation. -Local wound care as ordered - Turn and reposition. -Keep clean and dry. -Avoid shear and friction. -Pressure reducing mattress. -Optimize nutrition. -Provide skin barrier cream for skin management and prevention. -Assess and notify MD for any further change of condition to skin. NADEEM CASTANEDA Sep 05, 2017 14:03
--- NOTE | 2017-09-05 14:42 | Pulmonology Progress Note ---
Assessment/Plan Problems: (1) Leukocytosis (2) Hx laparoscopic cholecystectomy (3) Urinary retention (4) Abdominal pain (5) Psychosis (6) HTN (hypertension) Assessment/Plan wbc decreasing pain is better bp better check amylase in am Subjective ROS Limited/Unobtainable: No Interval Events: pain is much better, Allergies: Coded Allergies: No Known Allergies (Unverified , 08/18/13) Objective Last 24 Hour Vital Signs Date Time Temp Pulse Resp B/P (MAP) Pulse Ox O2 Delivery O2 Flow Rate FiO2 09/05/17 13:28 99 146/86 97 Nasal Cannula 2.0 09/05/17 12:57 88 158/83 92 Nasal Cannula 2.0 09/05/17 12:53 98.3 09/05/17 12:50 163/113 09/05/17 12:50 112 163/113 91 Nasal Cannula 2.0 09/05/17 12:39 212/128 09/05/17 12:38 212/128 09/05/17 12:35 109 212/128 95 Nasal Cannula 2.0 09/05/17 12:10 98.3 77 19 99 09/05/17 09:47 98.2 09/05/17 08:31 74 166/96 09/05/17 08:00 98.2 74 20 160/96 98 09/05/17 04:00 99.1 85 18 142/59 98 Nasal Cannula 2.0 09/05/17 00:12 Nasal Cannula 2.0 09/05/17 00:11 98.8 85 18 146/77 98 09/04/17 21:14 Nasal Cannula 2.0 28 09/04/17 21:14 97 Nasal Cannula 2.0 28 09/04/17 20:01 Nasal Cannula 2.0 09/04/17 20:00 98.0 77 18 155/70 96 09/04/17 18:40 98.2 09/04/17 18:09 184/96 09/04/17 16:00 98.2 72 20 184/96 99 Intake and Output 09/05/17 09/06/17 19:00 07:00 Intake Total 1215 ml Balance 1215 ml Intake Oral 690 ml IV Total 525 ml General Appearance: WD/WN HEENT: normocephalic, atraumatic Respiratory/Chest: chest wall non-tender, lungs clear Cardiovascular: normal peripheral pulses, normal rate Abdomen: normal bowel sounds, soft, non tender, no scars Extremities: no clubbing Skin: no rash, no lesions Microbiology Date/Time Source Procedure Growth Status 09/03/17 20:55 Urine,Clean Catch Urine Culture - Preliminary NO GROWTH AFTER 24 HOURS Resulted 09/04/17 00:31 Rectum VRE Culture - Final NO VANCOMYCIN RESISTANT ENTEROCOCCUS ... Complete Laboratory Tests 09/04/17 15:15: White Blood Count 14.3H, Red Blood Count 5.26, Hemoglobin 12.9L, Hematocrit 40.6L, Mean Corpuscular Volume 77L, Mean Corpuscular Hemoglobin 24.5L, Mean Corpuscular Hemoglobin Concent 31.8L, Red Cell Distribution Width 16.9H, Platelet Count 418, Mean Platelet Volume 6.7, Neutrophils (%) (Auto) 82.4H, Lymphocytes (%) (Auto) 7.9L, Monocytes (%) (Auto) 9.2, Eosinophils (%) (Auto) 0.0, Basophils (%) (Auto) 0.4, Lactic Acid Level 1.20 09/05/17 06:45: White Blood Count 11.3H, Red Blood Count 5.25, Hemoglobin 12.2L, Hematocrit 41.2L, Mean Corpuscular Volume 78L, Mean Corpuscular Hemoglobin 23.2L, Mean Corpuscular Hemoglobin Concent 29.5L, Red Cell Distribution Width 16.5H, Platelet Count 381, Mean Platelet Volume 6.6, Neutrophils (%) (Auto) 74.6, Lymphocytes (%) (Auto) 16.5L, Monocytes (%) (Auto) 8.2, Eosinophils (%) (Auto) 0.3, Basophils (%) (Auto) 0.6, Sodium Level 137, Potassium Level 3.8, Chloride Level 99, Carbon Dioxide Level 27, Anion Gap 11, Blood Urea Nitrogen 13, Creatinine 1.0, Estimat Glomerular Filtration Rate , Glucose Level 100, Calcium Level 9.1, Total Bilirubin 1.5H, Direct Bilirubin 0.4H, Aspartate Amino Transf ( AST/SGOT) 23, Alanine Aminotransferase (ALT/SGPT) 36, Alkaline Phosphatase 138H , Total Protein 7.5, Albumin 3.3L, Globulin 4.2, Albumin/Globulin Ratio 0.8L, Amylase Level 35, Lipase 71L Current Medications Medications (Trade) Dose Ordered Sig/Ritu Route PRN Reason Start Time Stop Time Status Last Admin Dose Admin Acetaminophen (Tylenol) 650 mg Q4H PRN ORAL fever 09/03/17 23:45 10/03/17 23:44 Al Hydroxide/Mg Hydroxide (Mylanta II) 30 ml Q6H PRN ORAL dyspepsia 09/03/17 23:45 10/03/17 23:44 Amlodipine Besylate (Norvasc) 5 mg DAILY ORAL 09/04/17 09:00 10/04/17 08:59 09/05/17 08:31 Aripiprazole (Abilify) 20 mg DAILY ORAL 09/04/17 09:00 10/04/17 08:59 09/05/17 08:30 Clonidine HCl (Catapres) 0.1 mg Q6H PRN ORAL For High Blood Pressure 09/04/17 17:00 10/04/17 16:59 09/05/17 12:38 Dextrose (Dextrose 50%) STAT PRN IV Hypoglycemia 09/03/17 23:45 10/03/17 23:44 Dextrose/Sodium Chloride 1,000 ml @ 75 mls/hr [id number] IV 09/03/17 23:31 10/03/17 23:30 09/05/17 00:39 Diphenhydramine HCl (Benadryl) 25 mg Q6H PRN ORAL Itching/Pruritis 09/03/17 23:45 10/03/17 23:44 Heparin Sodium (Porcine) (Heparin 5000 units/ml) 5,000 units EVERY 12 HOURS SUBQ 09/04/17 09:00 10/04/17 08:59 09/05/17 08:32 Ketorolac Tromethamine (Toradol 30mg) 15 mg Q6H PRN IV Moderate Pain (Pain Scale 4-6) 09/04/17 14:30 09/09/17 14:29 09/05/17 12:23 Lorazepam (Ativan 2mg/ml 1ml) 1 mg EVERY 4 HOURS PRN IV agitation 09/03/17 23:45 09/10/17 23:44 09/04/17 14:12 Metoclopramide HCl (Reglan) 10 mg Q6H PRN IVP servere [place] 09/03/17 23:45 10/03/17 23:44 Morphine Sulfate (Morphine Sulfate) 4 mg Q4H PRN IVP Severe Pain (Pain Scale 7-10) 09/04/17 10:15 09/11/17 10:14 09/05/17 13:25 Nitroglycerin (Ntg) 0.4 mg Q5M X 3 DOSES PRN SL Prn Chest Pain 09/03/17 23:45 10/03/17 23:44 09/05/17 12:50 Ondansetron HCl (Zofran) 4 mg Q6H PRN IVP Nausea & Vomiting 09/03/17 23:45 10/03/17 23:44 Pantoprazole (Protonix) 40 mg DAILY IV 09/04/17 09:00 10/04/17 08:59 09/05/17 08:30 Polyethylene Glycol (Miralax) 17 gm HSPRN PRN ORAL Constipation 09/03/17 23:45 10/03/17 23:44 Promethazine HCl (Phenergan) 25 mg EVERY 8 HOURS PRN IV refractory nausea 09/04/17 08:15 10/03/17 23:44 Temazepam (Restoril) 15 mg HSPRN PRN ORAL Insomnia 09/03/17 23:45 09/10/17 23:44 RHONDA AMOR Sep 05, 2017 14:42
--- NOTE | 2017-09-05 15:45 | General Surgery Progress Note ---
General Surgery-Progress Note Subjective Symptoms: improved, tolerating diet, passing flatus Additional Comments patient seen and examined. doing well. pain resolving. no n/v/f/c. tolerating diet. ambulatory. feels better. Objective Last 24 Hour Vital Signs Date Time Temp Pulse Resp B/P (MAP) Pulse Ox O2 Delivery O2 Flow Rate FiO2 09/05/17 13:55 98.3 09/05/17 13:28 99 146/86 97 Nasal Cannula 2.0 09/05/17 12:57 88 158/83 92 Nasal Cannula 2.0 09/05/17 12:53 98.3 09/05/17 12:50 163/113 09/05/17 12:50 112 163/113 91 Nasal Cannula 2.0 09/05/17 12:39 212/128 09/05/17 12:38 212/128 09/05/17 12:35 109 212/128 95 Nasal Cannula 2.0 09/05/17 12:10 98.3 77 19 99 09/05/17 08:31 74 166/96 09/05/17 08:00 98.2 74 20 160/96 98 09/05/17 04:00 99.1 85 18 142/59 98 Nasal Cannula 2.0 09/05/17 00:12 Nasal Cannula 2.0 09/05/17 00:11 98.8 85 18 146/77 98 09/04/17 21:14 Nasal Cannula 2.0 28 09/04/17 21:14 97 Nasal Cannula 2.0 28 09/04/17 20:01 Nasal Cannula 2.0 09/04/17 20:00 98.0 77 18 155/70 96 09/04/17 18:40 98.2 09/04/17 18:09 184/96 09/04/17 16:00 98.2 72 20 184/96 99 I&O Intake and Output 09/05/17 09/06/17 19:00 07:00 Intake Total 1215 ml Balance 1215 ml Intake Oral 690 ml IV Total 525 ml Wound: clean, dry Drains: none Cardiovascular: RSR Respiratory: clear Abdomen: soft, flat, other - incisional tenderness. Extremities: no tenderness Laboratory Tests Test 09/05/17 06:45 White Blood Count 11.3 K/UL (4.8-10.8) H Red Blood Count 5.25 M/UL (4.70-6.10) Hemoglobin 12.2 G/DL (14.2-18.0) L Hematocrit 41.2 % (42.0-52.0) L Mean Corpuscular Volume 78 FL (80-99) L Mean Corpuscular Hemoglobin 23.2 PG (27.0-31.0) L Mean Corpuscular Hemoglobin Concent 29.5 G/DL (32.0-36.0) L Red Cell Distribution Width 16.5 % (11.6-14.8) H Platelet Count 381 K/UL (150-450) Mean Platelet Volume 6.6 FL (6.5-10.1) Neutrophils (%) (Auto) 74.6 % (45.0-75.0) Lymphocytes (%) (Auto) 16.5 % (20.0-45.0) L Monocytes (%) (Auto) 8.2 % (1.0-10.0) Eosinophils (%) (Auto) 0.3 % (0.0-3.0) Basophils (%) (Auto) 0.6 % (0.0-2.0) Sodium Level 137 MMOL/L (136-145) Potassium Level 3.8 MMOL/L (3.5-5.1) Chloride Level 99 MMOL/L (98-107) Carbon Dioxide Level 27 MMOL/L (21-32) Anion Gap 11 mmol/L (5-15) Blood Urea Nitrogen 13 mg/dL (7-18) Creatinine 1.0 MG/DL (0.55-1.30) Estimat Glomerular Filtration Rate mL/min (>60) Glucose Level 100 MG/DL (74-106) Calcium Level 9.1 MG/DL (8.5-10.1) Total Bilirubin 1.5 MG/DL (0.2-1.0) H Direct Bilirubin 0.4 MG/DL (0.0-0.3) H Aspartate Amino Transf (AST/SGOT) 23 U/L (15-37) Alanine Aminotransferase (ALT/SGPT) 36 U/L (12-78) Alkaline Phosphatase 138 U/L (46-116) H Total Protein 7.5 G/DL (6.4-8.2) Albumin 3.3 G/DL (3.4-5.0) L Globulin 4.2 g/dL Albumin/Globulin Ratio 0.8 (1.0-2.7) L Amylase Level 35 U/L (25-115) Lipase 71 U/L (73-393) L Plan Problems: (1) Abdominal pain Assessment & Plan: 72M with abdominal dillon. had lap erlin 09/03/17 at outside facility. urinary retention post op while at home which resolved with june. then had abdominal pain. CT reviewed. given recent surgery free air is anticipated and unlikely bowel perforation. He is currently afebrile, HD stable , and exam only with incisional tenderness. leukocytosis resolving. exam improved. continues to ask for pain meds even though not having pain. continues to insist that he must get a Rx for pain meds upon discharge. -advance to regular soft diet -d/c fluids -ambulate and OOB -start flomax -d/c june and see how he does. if urinary obstruction resolved okay. if not bladder scan in 6 hrs. if residual > 500cc replace june. -repeat labs in am discharge planning. thank you for this consult. will follow with recs. Marcel Thompson Sep 05, 2017 15:45
[2017-09-05] MEDS: Tamsulosin 0.4mg cap ORAL SCH (20:25)
[2017-09-06 00:41] VITALS: BP 126/73
[2017-09-06] MEDS: Morphine Sulfate 4mg/ml Inj IVP PRN ×4 (01:53→19:44)
[2017-09-06] MEDS: LORazepam Inj 2mg/ml 1ml IV PRN ×2 (03:31→21:58)
[2017-09-06] MEDS: Miralax 17gm pkt ORAL PRN (03:34)
[2017-09-06 04:00] VITALS: BP 107/62
[2017-09-06 06:49] LABS: BASOPHILS % (AUTO) 0.7 % (0.0-2.0); EOSINOPHILS % (AUTO) 0.9 % (0.0-3.0); LYMPHOCYTES % (AUTO) 14.9 % (20.0-45.0); MEAN CORPUSCULAR HEMOGLOBIN 23.8 PG (27.0-31.0); MEAN CORPUSCULAR VOLUME 77 FL (80-99); MEAN PLATELET VOLUME 6.9 FL (6.5-10.1); MONOCYTES % (AUTO) 7.5 % (1.0-10.0); PLATELET COUNT 373 K/UL (150-450); RED BLOOD COUNT 4.97 M/UL (4.70-6.10); RED CELL DISTRIBUTION WIDTH 16.1 % (11.6-14.8); WHITE BLOOD COUNT 10.6 K/UL (4.8-10.8)
[2017-09-06 07:16] LABS: ALANINE AMINOTRANSFERASE 28 U/L (12-78); ALBUMIN/GLOBULIN RATIO 0.7 (1.0-2.7); ANION GAP 11 mmol/L (5-15); ASPARTATE AMINO TRANSFERASE 21 U/L (15-37); CALCIUM 8.8 MG/DL (8.5-10.1); CARBON DIOXIDE 24 MMOL/L (21-32); CHLORIDE 98 MMOL/L (98-107); CREATININE 1.1 MG/DL (0.55-1.30); POTASSIUM 3.1 MMOL/L (3.5-5.1); SODIUM 133 MMOL/L (136-145); TOTAL PROTEIN 6.8 G/DL (6.4-8.2)
[2017-09-06 07:18] LABS: CRP QUANT 13.4 mg/dL (0.00-0.90); MAGNESIUM 1.7 MG/DL (1.8-2.4)
[2017-09-06 07:21] LABS: BILIRUBIN,DIRECT 0.5 MG/DL (0.0-0.3)
[2017-09-06 08:00] VITALS: BP 94/60
[2017-09-06] MEDS: Pantoprazole Inj IV SCH (08:55)
[2017-09-06] MEDS: ARIPiprazole 10mg tab ORAL SCH (08:58)
[2017-09-06] MEDS: Heparin 5000 units/ml inj SUBQ SCH ×2 (09:01→21:03)
--- NOTE | 2017-09-06 10:46 | GI Progress Note ---
Assessment/Plan Problems: (1) Perforated abdominal viscus SNOMED: 505985140 (2) Ileus, postoperative ICD Codes: K91.89 - Other postprocedural complications and disorders of digestive system; K56.7 - Ileus, unspecified SNOMED: 488723995 (3) Abdominal pain ICD Codes: R10.9 - Abdominal pain SNOMED: 39974383 Status: stable, progressing Status Narrative Discussed with Dr. Veloz. Assessment/Plan fu surgical recs non operative management soft diet, tolerating electrolyte replacement ambulate and OOB pain mgmt imaging studies prn dulcolax x 1 PT eval repeat labs in am The patient was seen and examined at bedside and all new and available data was reviewed in the patients chart. I agree with the above findings, impression and plan. (Patient seen earlier today. Signature stamp does not reflect patient encounter time.). - Sonny Veloz MD Subjective Subjective abdominal pain better, but still present Objective Last 24 Hour Vital Signs Date Time Temp Pulse Resp B/P (MAP) Pulse Ox O2 Delivery O2 Flow Rate FiO2 09/06/17 09:00 115 94/60 09/06/17 08:00 97.6 115 19 94/60 97 Room Air 09/06/17 04:00 Nasal Cannula 2.0 09/06/17 04:00 99.1 84 18 107/62 96 09/06/17 02:33 98.4 09/06/17 01:26 Nasal Cannula 2.0 28 09/06/17 01:25 90 Nasal Cannula 2.0 28 09/06/17 00:41 98.4 73 19 126/73 96 09/06/17 00:00 Nasal Cannula 2.0 09/05/17 20:37 99.7 75 18 110/59 94 09/05/17 20:00 Nasal Cannula 2.0 09/05/17 16:07 98.2 81 18 131/78 96 09/05/17 13:28 99 146/86 97 Nasal Cannula 2.0 09/05/17 12:57 88 158/83 92 Nasal Cannula 2.0 09/05/17 12:53 98.3 09/05/17 12:50 163/113 09/05/17 12:50 112 163/113 91 Nasal Cannula 2.0 09/05/17 12:39 212/128 09/05/17 12:38 212/128 09/05/17 12:35 109 212/128 95 Nasal Cannula 2.0 09/05/17 12:10 98.3 77 19 99 Laboratory Tests Test 09/06/17 05:35 White Blood Count 10.6 K/UL (4.8-10.8) Red Blood Count 4.97 M/UL (4.70-6.10) Hemoglobin 11.8 G/DL (14.2-18.0) L Hematocrit 38.2 % (42.0-52.0) L Mean Corpuscular Volume 77 FL (80-99) L Mean Corpuscular Hemoglobin 23.8 PG (27.0-31.0) L Mean Corpuscular Hemoglobin Concent 31.0 G/DL (32.0-36.0) L Red Cell Distribution Width 16.1 % (11.6-14.8) H Platelet Count 373 K/UL (150-450) Mean Platelet Volume 6.9 FL (6.5-10.1) Neutrophils (%) (Auto) 76.0 % (45.0-75.0) H Lymphocytes (%) (Auto) 14.9 % (20.0-45.0) L Monocytes (%) (Auto) 7.5 % (1.0-10.0) Eosinophils (%) (Auto) 0.9 % (0.0-3.0) Basophils (%) (Auto) 0.7 % (0.0-2.0) Erythrocyte Sedimentation Rate 35 MM/HR (0-20) H Sodium Level 133 MMOL/L (136-145) L Potassium Level 3.1 MMOL/L (3.5-5.1) L Chloride Level 98 MMOL/L (98-107) Carbon Dioxide Level 24 MMOL/L (21-32) Anion Gap 11 mmol/L (5-15) Blood Urea Nitrogen 22 mg/dL (7-18) H Creatinine 1.1 MG/DL (0.55-1.30) Estimat Glomerular Filtration Rate mL/min (>60) Glucose Level 104 MG/DL (74-106) Calcium Level 8.8 MG/DL (8.5-10.1) Phosphorus Level 3.0 MG/DL (2.5-4.9) Magnesium Level 1.7 MG/DL (1.8-2.4) L Total Bilirubin 1.9 MG/DL (0.2-1.0) H Direct Bilirubin 0.5 MG/DL (0.0-0.3) H Aspartate Amino Transf (AST/SGOT) 21 U/L (15-37) Alanine Aminotransferase (ALT/SGPT) 28 U/L (12-78) Alkaline Phosphatase 155 U/L (46-116) H C-Reactive Protein, Quantitative 13.4 mg/dL (0.00-0.90) H Total Protein 6.8 G/DL (6.4-8.2) Albumin 2.9 G/DL (3.4-5.0) L Globulin 3.9 g/dL Albumin/Globulin Ratio 0.7 (1.0-2.7) L Amylase Level 37 U/L (25-115) Lipase 103 U/L (73-393) Height (Feet): 5 Height (Inches): 11.00 Weight (Pounds): 215 General Appearance: WD/WN, no apparent distress, alert Cardiovascular: normal rate Respiratory/Chest: normal breath sounds, no respiratory distress Abdominal Exam: normal bowel sounds, non tender, soft Extremities: non-tender Barbi Matson N.Vandana Sep 06, 2017 10:45 AKIL VELOZ Sep 07, 2017 09:51
--- NOTE | 2017-09-06 10:48 | Consultation ---
History of Present Illness General Date patient seen: Sep 06, 2017 Time patient seen: 10:47 Chief Complaint: Abdominal Pain Referring physician: RHONDA MEJIA Reason for Consultation: abdomina pain Present Illness HPI 72 y/o M with hx of HTN, MDD, s/p lap cholecystectomy 09/03 and later the same afternoon went to [facility] for urinary retention and june was placed now presented to ED on 09/04 with diffuse abdominal pain, rated 4/10 and decreased appetite Denied vomiting, CP, SOB, f/c, fall/trauma. In ED, CT with small pockets of free air but expected after recent procedure per surgery. Thought to have an ileus. Afebrile. leukocytosis up to 15 now resolved. off abx. Abd pain improving. Allergies: Coded Allergies: No Known Allergies (Unverified , 08/18/13) Medication History Scheduled Amlodipine Besylate (Norvasc), 5 MG ORAL DAILY, (Reported) Aripiprazole* (Abilify*), 20 MG ORAL DAILY, (Reported) Duloxetine Hcl* (Cymbalta*), 30 MG ORAL DAILY, (Reported) Valsartan (Diovan), 160 MG ORAL DAILY, (Reported) Patient History Healthcare decision maker Resuscitation status Full Code Advanced Directive on File Patient History Narrative PMhx: as above Shx: reviewed Fhx: non contributory Review of Systems All Other Systems: negative except mentioned in HPI Physical Exam Physical Exam Narrative General Appearance: WD/WN Lines, tubes and drains: peripheral, central line HEENT: normocephalic, atraumatic Neck: non-tender, supple Respiratory/Chest: chest wall non-tender, lungs clear Cardiovascular/Chest: normal peripheral pulses, normal rate, regularly irregular Abdomen: normal bowel sounds, non tender, surgical incision healing well, no signs of infection Back: area of irritation, with withish sediments on area between buttocks. Last 24 Hour Vital Signs Date Time Temp Pulse Resp B/P (MAP) Pulse Ox O2 Delivery O2 Flow Rate FiO2 09/06/17 09:00 115 94/60 09/06/17 08:00 97.6 115 19 94/60 97 Room Air 09/06/17 04:00 Nasal Cannula 2.0 09/06/17 04:00 99.1 84 18 107/62 96 09/06/17 02:33 98.4 09/06/17 01:26 Nasal Cannula 2.0 28 09/06/17 01:25 90 Nasal Cannula 2.0 28 09/06/17 00:41 98.4 73 19 126/73 96 09/06/17 00:00 Nasal Cannula 2.0 09/05/17 20:37 99.7 75 18 110/59 94 09/05/17 20:00 Nasal Cannula 2.0 09/05/17 16:07 98.2 81 18 131/78 96 09/05/17 13:28 99 146/86 97 Nasal Cannula 2.0 09/05/17 12:57 88 158/83 92 Nasal Cannula 2.0 09/05/17 12:53 98.3 09/05/17 12:50 163/113 09/05/17 12:50 112 163/113 91 Nasal Cannula 2.0 09/05/17 12:39 212/128 09/05/17 12:38 212/128 09/05/17 12:35 109 212/128 95 Nasal Cannula 2.0 09/05/17 12:10 98.3 77 19 99 Laboratory Tests Test 09/06/17 05:35 White Blood Count 10.6 K/UL (4.8-10.8) Red Blood Count 4.97 M/UL (4.70-6.10) Hemoglobin 11.8 G/DL (14.2-18.0) L Hematocrit 38.2 % (42.0-52.0) L Mean Corpuscular Volume 77 FL (80-99) L Mean Corpuscular Hemoglobin 23.8 PG (27.0-31.0) L Mean Corpuscular Hemoglobin Concent 31.0 G/DL (32.0-36.0) L Red Cell Distribution Width 16.1 % (11.6-14.8) H Platelet Count 373 K/UL (150-450) Mean Platelet Volume 6.9 FL (6.5-10.1) Neutrophils (%) (Auto) 76.0 % (45.0-75.0) H Lymphocytes (%) (Auto) 14.9 % (20.0-45.0) L Monocytes (%) (Auto) 7.5 % (1.0-10.0) Eosinophils (%) (Auto) 0.9 % (0.0-3.0) Basophils (%) (Auto) 0.7 % (0.0-2.0) Erythrocyte Sedimentation Rate 35 MM/HR (0-20) H Sodium Level 133 MMOL/L (136-145) L Potassium Level 3.1 MMOL/L (3.5-5.1) L Chloride Level 98 MMOL/L (98-107) Carbon Dioxide Level 24 MMOL/L (21-32) Anion Gap 11 mmol/L (5-15) Blood Urea Nitrogen 22 mg/dL (7-18) H Creatinine 1.1 MG/DL (0.55-1.30) Estimat Glomerular Filtration Rate mL/min (>60) Glucose Level 104 MG/DL (74-106) Calcium Level 8.8 MG/DL (8.5-10.1) Phosphorus Level 3.0 MG/DL (2.5-4.9) Magnesium Level 1.7 MG/DL (1.8-2.4) L Total Bilirubin 1.9 MG/DL (0.2-1.0) H Direct Bilirubin 0.5 MG/DL (0.0-0.3) H Aspartate Amino Transf (AST/SGOT) 21 U/L (15-37) Alanine Aminotransferase (ALT/SGPT) 28 U/L (12-78) Alkaline Phosphatase 155 U/L (46-116) H C-Reactive Protein, Quantitative 13.4 mg/dL (0.00-0.90) H Total Protein 6.8 G/DL (6.4-8.2) Albumin 2.9 G/DL (3.4-5.0) L Globulin 3.9 g/dL Albumin/Globulin Ratio 0.7 (1.0-2.7) L Amylase Level 37 U/L (25-115) Lipase 103 U/L (73-393) Height (Feet): 5 Height (Inches): 11.00 Weight (Pounds): 215 Medications Current Medications Medications (Trade) Dose Ordered Sig/Ritu Route PRN Reason Start Time Stop Time Status Last Admin Dose Admin Acetaminophen (Tylenol) 650 mg Q4H PRN ORAL fever 09/03/17 23:45 10/03/17 23:44 Al Hydroxide/Mg Hydroxide (Mylanta II) 30 ml Q6H PRN ORAL dyspepsia 09/03/17 23:45 10/03/17 23:44 Amlodipine Besylate (Norvasc) 5 mg DAILY ORAL 09/04/17 09:00 10/04/17 08:59 09/05/17 08:31 Aripiprazole (Abilify) 20 mg DAILY ORAL 09/04/17 09:00 10/04/17 08:59 09/06/17 08:58 Clonidine HCl (Catapres) 0.1 mg Q6H PRN ORAL For High Blood Pressure 09/04/17 17:00 10/04/17 16:59 09/05/17 12:38 Dextrose (Dextrose 50%) STAT PRN IV Hypoglycemia 09/03/17 23:45 10/03/17 23:44 Diphenhydramine HCl (Benadryl) 25 mg Q6H PRN ORAL Itching/Pruritis 09/03/17 23:45 10/03/17 23:44 Heparin Sodium (Porcine) (Heparin 5000 units/ml) 5,000 units EVERY 12 HOURS SUBQ 09/04/17 09:00 10/04/17 08:59 09/06/17 09:01 Ketorolac Tromethamine (Toradol 30mg) 15 mg Q6H PRN IV Moderate Pain (Pain Scale 4-6) 09/04/17 14:30 09/09/17 14:29 09/05/17 12:23 Lorazepam (Ativan 2mg/ml 1ml) 1 mg EVERY 4 HOURS PRN IV agitation 09/03/17 23:45 09/10/17 23:44 09/06/17 03:31 Magnesium Sulfate 100 ml @ 100 mls/hr Q1H IVPB 09/06/17 09:00 09/06/17 10:59 09/06/17 09:13 Metoclopramide HCl (Reglan) 10 mg Q6H PRN IVP servere nauasea 09/03/17 23:45 10/03/17 23:44 Morphine Sulfate (Morphine Sulfate) 4 mg Q4H PRN IVP Severe Pain (Pain Scale 7-10) 09/04/17 10:15 09/11/17 10:14 09/06/17 08:13 Nitroglycerin (Ntg) 0.4 mg Q5M X 3 DOSES PRN SL Prn Chest Pain 09/03/17 23:45 10/03/17 23:44 09/05/17 12:50 Ondansetron HCl (Zofran) 4 mg Q6H PRN IVP Nausea & Vomiting 09/03/17 23:45 10/03/17 23:44 Pantoprazole (Protonix) 40 mg DAILY IV 09/04/17 09:00 10/04/17 08:59 09/06/17 08:55 Polyethylene Glycol (Miralax) 17 gm HSPRN PRN ORAL Constipation 09/03/17 23:45 10/03/17 23:44 09/06/17 03:34 Promethazine HCl (Phenergan) 25 mg EVERY 8 HOURS PRN IV refractory nausea 09/04/17 08:15 10/03/17 23:44 Tamsulosin HCl (Flomax) 0.4 mg BEDTIME ORAL 09/05/17 21:00 10/05/17 20:59 09/05/17 20:25 Temazepam (Restoril) 15 mg HSPRN PRN ORAL Insomnia 09/03/17 23:45 09/10/17 23:44 09/05/17 22:00 Assessment/Plan Assessment/Plan Abx: None Assessment: Abdominal pain- likely 2ry to ileus -Abd us: Surgically absent gallbladder. Mildly dilated common bile duct, most likely related to age and postcholecystectomy state. Downstream obstruction not completely excludable, however, and correlation with liver function tests is recommended. No other significant findings -CT abd/p:scattered tiny pockets of gas Leukocytosis- likely reactive- now resolved -afebrile -u/a no pyuria but hematuria; ucx NTD s/p lap cholecystectomy 09/03 Post-op urinary retention s/p June placement HTN MDD Plan: -Continue to monitor off abx -nystatin powder for area between buttocks for fungal infection -pain control -wound care -f/u cx -Monitor CBC/BMP, temperatures Thank you for this consultation. Will continue to follow along with you. Discussed with Cheyenne Bueno M.D. Sep 06, 2017 10:48
[2017-09-06 12:00] VITALS: BP 118/73
--- NOTE | 2017-09-06 13:47 | General Surgery Progress Note ---
General Surgery-Progress Note Subjective Symptoms: improved, tolerating diet, passing flatus, BM Additional Comments doing much better. no n/v/f/c. tolerating diet. had BM today. requesting physical therapy as he feels deconditioned. Objective Last 24 Hour Vital Signs Date Time Temp Pulse Resp B/P (MAP) Pulse Ox O2 Delivery O2 Flow Rate FiO2 09/06/17 12:00 97.6 88 18 118/73 97 Room Air 09/06/17 09:00 115 94/60 09/06/17 08:00 97.6 115 19 94/60 97 Room Air 09/06/17 04:00 Nasal Cannula 2.0 09/06/17 04:00 99.1 84 18 107/62 96 09/06/17 02:33 98.4 09/06/17 01:26 Nasal Cannula 2.0 28 09/06/17 01:25 90 Nasal Cannula 2.0 28 09/06/17 00:41 98.4 73 19 126/73 96 09/06/17 00:00 Nasal Cannula 2.0 09/05/17 20:37 99.7 75 18 110/59 94 09/05/17 20:00 Nasal Cannula 2.0 09/05/17 16:07 98.2 81 18 131/78 96 Dressing: dry Wound: clean, dry Drains: none Cardiovascular: RSR Respiratory: clear Abdomen: soft, non-tender, present bowel sounds Extremities: no edema Laboratory Tests Test 09/06/17 05:35 White Blood Count 10.6 K/UL (4.8-10.8) Red Blood Count 4.97 M/UL (4.70-6.10) Hemoglobin 11.8 G/DL (14.2-18.0) L Hematocrit 38.2 % (42.0-52.0) L Mean Corpuscular Volume 77 FL (80-99) L Mean Corpuscular Hemoglobin 23.8 PG (27.0-31.0) L Mean Corpuscular Hemoglobin Concent 31.0 G/DL (32.0-36.0) L Red Cell Distribution Width 16.1 % (11.6-14.8) H Platelet Count 373 K/UL (150-450) Mean Platelet Volume 6.9 FL (6.5-10.1) Neutrophils (%) (Auto) 76.0 % (45.0-75.0) H Lymphocytes (%) (Auto) 14.9 % (20.0-45.0) L Monocytes (%) (Auto) 7.5 % (1.0-10.0) Eosinophils (%) (Auto) 0.9 % (0.0-3.0) Basophils (%) (Auto) 0.7 % (0.0-2.0) Erythrocyte Sedimentation Rate 35 MM/HR (0-20) H Sodium Level 133 MMOL/L (136-145) L Potassium Level 3.1 MMOL/L (3.5-5.1) L Chloride Level 98 MMOL/L (98-107) Carbon Dioxide Level 24 MMOL/L (21-32) Anion Gap 11 mmol/L (5-15) Blood Urea Nitrogen 22 mg/dL (7-18) H Creatinine 1.1 MG/DL (0.55-1.30) Estimat Glomerular Filtration Rate mL/min (>60) Glucose Level 104 MG/DL (74-106) Calcium Level 8.8 MG/DL (8.5-10.1) Phosphorus Level 3.0 MG/DL (2.5-4.9) Magnesium Level 1.7 MG/DL (1.8-2.4) L Total Bilirubin 1.9 MG/DL (0.2-1.0) H Direct Bilirubin 0.5 MG/DL (0.0-0.3) H Aspartate Amino Transf (AST/SGOT) 21 U/L (15-37) Alanine Aminotransferase (ALT/SGPT) 28 U/L (12-78) Alkaline Phosphatase 155 U/L (46-116) H C-Reactive Protein, Quantitative 13.4 mg/dL (0.00-0.90) H Total Protein 6.8 G/DL (6.4-8.2) Albumin 2.9 G/DL (3.4-5.0) L Globulin 3.9 g/dL Albumin/Globulin Ratio 0.7 (1.0-2.7) L Amylase Level 37 U/L (25-115) Lipase 103 U/L (73-393) Plan Problems: (1) Abdominal pain Assessment & Plan: 72M with abdominal dillon. had lap erlin 09/03/17 at outside facility. urinary retention post op while at home which resolved with june. then had abdominal pain. CT reviewed. given recent surgery free air is anticipated and unlikely bowel perforation. He is currently afebrile, HD stable , and exam only with incisional tenderness. leukocytosis resolved. exam improved. no requiring as much pain meds now. Had BM today. T bili and alk phos elevated and tending up. direct bili okay and mostly indirect. june removed and good urine output since. -diet as tolerated. -ambulate and OOB -needs pt/ot -repeat labs in am to ensure no further rise in t bili and alk phos. discharge planning. may need rehab given age, surgery, hx of knee surgery, and deconditioning. thank you for this consult. will follow with jaret. Marcel Thompson Sep 06, 2017 13:47
--- NOTE | 2017-09-06 13:53 | Pulmonology Progress Note ---
Assessment/Plan Problems: (1) Leukocytosis (2) Hx laparoscopic cholecystectomy (3) Urinary retention (4) Abdominal pain (5) Psychosis (6) HTN (hypertension) Assessment/Plan wbc decreasing pain is better bp better bilirubin in am dc planning Subjective Interval Events: pain is better controlled, bilirubin slightly high, Constitutional: Reports: no symptoms Allergies: Coded Allergies: No Known Allergies (Unverified , 08/18/13) Objective Last 24 Hour Vital Signs Date Time Temp Pulse Resp B/P (MAP) Pulse Ox O2 Delivery O2 Flow Rate FiO2 09/06/17 12:00 97.6 88 18 118/73 97 Room Air 09/06/17 09:00 115 94/60 09/06/17 08:00 97.6 115 19 94/60 97 Room Air 09/06/17 04:00 Nasal Cannula 2.0 09/06/17 04:00 99.1 84 18 107/62 96 09/06/17 02:33 98.4 09/06/17 01:26 Nasal Cannula 2.0 28 09/06/17 01:25 90 Nasal Cannula 2.0 28 09/06/17 00:41 98.4 73 19 126/73 96 09/06/17 00:00 Nasal Cannula 2.0 09/05/17 20:37 99.7 75 18 110/59 94 09/05/17 20:00 Nasal Cannula 2.0 09/05/17 16:07 98.2 81 18 131/78 96 General Appearance: WD/WN HEENT: normocephalic, anicteric Respiratory/Chest: chest wall non-tender, normal breath sounds Cardiovascular: normal peripheral pulses, regular rhythm Abdomen: normal bowel sounds, soft, non tender Genitourinary: normal external genitalia Skin: no rash, no lesions Microbiology Date/Time Source Procedure Growth Status 09/04/17 00:31 Nasal Nares MRSA Culture - Final NO METHICILLIN RESISTANT STAPH AUREUS... Complete 09/03/17 20:55 Urine,Clean Catch Urine Culture - Final NO GROWTH AFTER 48 HOURS Complete 09/04/17 00:31 Rectum VRE Culture - Final NO VANCOMYCIN RESISTANT ENTEROCOCCUS ... Complete Laboratory Tests 09/06/17 05:35: White Blood Count 10.6, Red Blood Count 4.97, Hemoglobin 11.8L, Hematocrit 38.2L , Mean Corpuscular Volume 77L, Mean Corpuscular Hemoglobin 23.8L, Mean Corpuscular Hemoglobin Concent 31.0L, Red Cell Distribution Width 16.1H, Platelet Count 373, Mean Platelet Volume 6.9, Neutrophils (%) (Auto) 76.0H, Lymphocytes (%) (Auto) 14.9L, Monocytes (%) (Auto) 7.5, Eosinophils (%) (Auto) 0.9, Basophils (%) (Auto) 0.7, Erythrocyte Sedimentation Rate 35H, Sodium Level 133L, Potassium Level 3.1L, Chloride Level 98, Carbon Dioxide Level 24, Anion Gap 11, Blood Urea Nitrogen 22H, Creatinine 1.1, Estimat Glomerular Filtration Rate , Glucose Level 104, Calcium Level 8.8, Phosphorus Level 3.0, Magnesium Level 1.7L, Total Bilirubin 1.9H, Direct Bilirubin 0.5H, Aspartate Amino Transf (AST/SGOT) 21, Alanine Aminotransferase (ALT/SGPT) 28, Alkaline Phosphatase 155H , C-Reactive Protein, Quantitative 13.4H, Total Protein 6.8, Albumin 2.9L, Globulin 3.9, Albumin/Globulin Ratio 0.7L, Amylase Level 37, Lipase 103 Current Medications Medications (Trade) Dose Ordered Sig/Ritu Route PRN Reason Start Time Stop Time Status Last Admin Dose Admin Acetaminophen (Tylenol) 650 mg Q4H PRN ORAL fever 09/03/17 23:45 10/03/17 23:44 Al Hydroxide/Mg Hydroxide (Mylanta II) 30 ml Q6H PRN ORAL dyspepsia 09/03/17 23:45 10/03/17 23:44 Amlodipine Besylate (Norvasc) 5 mg DAILY ORAL 09/04/17 09:00 10/04/17 08:59 09/05/17 08:31 Aripiprazole (Abilify) 20 mg DAILY ORAL 09/04/17 09:00 10/04/17 08:59 09/06/17 08:58 Clonidine HCl (Catapres) 0.1 mg Q6H PRN ORAL For High Blood Pressure 09/04/17 17:00 10/04/17 16:59 09/05/17 12:38 Dextrose (Dextrose 50%) STAT PRN IV Hypoglycemia 09/03/17 23:45 10/03/17 23:44 Diphenhydramine HCl (Benadryl) 25 mg Q6H PRN ORAL Itching/Pruritis 09/03/17 23:45 10/03/17 23:44 Heparin Sodium (Porcine) (Heparin 5000 units/ml) 5,000 units EVERY 12 HOURS SUBQ 09/04/17 09:00 10/04/17 08:59 09/06/17 09:01 Ketorolac Tromethamine (Toradol 30mg) 15 mg Q6H PRN IV Moderate Pain (Pain Scale 4-6) 09/04/17 14:30 09/09/17 14:29 09/05/17 12:23 Lorazepam (Ativan 2mg/ml 1ml) 1 mg EVERY 4 HOURS PRN IV agitation 09/03/17 23:45 09/10/17 23:44 09/06/17 03:31 Metoclopramide HCl (Reglan) 10 mg Q6H PRN IVP servere [place] 09/03/17 23:45 10/03/17 23:44 Morphine Sulfate (Morphine Sulfate) 4 mg Q4H PRN IVP Severe Pain (Pain Scale 7-10) 09/04/17 10:15 09/11/17 10:14 09/06/17 08:13 Nitroglycerin (Ntg) 0.4 mg Q5M X 3 DOSES PRN SL Prn Chest Pain 09/03/17 23:45 10/03/17 23:44 09/05/17 12:50 Nystatin (Nystop Powder) 1 applic THREE TIMES A DAY TOPIC 09/06/17 14:00 10/06/17 13:59 Ondansetron HCl (Zofran) 4 mg Q6H PRN IVP Nausea & Vomiting 09/03/17 23:45 10/03/17 23:44 Pantoprazole (Protonix) 40 mg DAILY IV 09/04/17 09:00 10/04/17 08:59 09/06/17 08:55 Polyethylene Glycol (Miralax) 17 gm HSPRN PRN ORAL Constipation 09/03/17 23:45 10/03/17 23:44 09/06/17 03:34 Promethazine HCl (Phenergan) 25 mg EVERY 8 HOURS PRN IV refractory nausea 09/04/17 08:15 10/03/17 23:44 Tamsulosin HCl (Flomax) 0.4 mg BEDTIME ORAL 09/05/17 21:00 1/5/18 20:59 09/05/17 20:25 Temazepam (Restoril) 15 mg HSPRN PRN ORAL Insomnia 09/03/17 23:45 09/10/17 23:44 09/05/17 22:00 RHONDA AMOR Sep 06, 2017 13:53
[2017-09-06] MEDS: Nystatin Powder 100,000 units/gm 15gm TOPIC SCH ×2 (14:43→17:28)
[2017-09-06 16:00] VITALS: BP 120/65
[2017-09-06] MEDS ORDERED: D5 1/2NS 1000ml IV ONE (16:02)
[2017-09-06 20:00] VITALS: BP 110/65
[2017-09-06] MEDS: Tamsulosin 0.4mg cap ORAL SCH (21:02)
[2017-09-07] VITALS: BP 145/65
[2017-09-07] MEDS: Morphine Sulfate 4mg/ml Inj IVP PRN ×3 (01:05→13:07)
[2017-09-07 04:00] VITALS: BP 126/60
[2017-09-07 07:20] LABS: BASOPHILS % (AUTO) 0.8 % (0.0-2.0); EOSINOPHILS % (AUTO) 4.4 % (0.0-3.0); LYMPHOCYTES % (AUTO) 22.7 % (20.0-45.0); MEAN CORPUSCULAR HGB CONC 31.4 G/DL (32.0-36.0); MEAN CORPUSCULAR VOLUME 77 FL (80-99); MEAN PLATELET VOLUME 7.2 FL (6.5-10.1); MONOCYTES % (AUTO) 7.8 % (1.0-10.0); NEUTROPHILS % (AUTO) 64.2 % (45.0-75.0); PLATELET COUNT 394 K/UL (150-450); RED BLOOD COUNT 4.75 M/UL (4.70-6.10); RED CELL DISTRIBUTION WIDTH 16.3 % (11.6-14.8)
[2017-09-07 07:56] LABS: ALANINE AMINOTRANSFERASE 20 U/L (12-78); ALBUMIN/GLOBULIN RATIO 0.6 (1.0-2.7); ANION GAP 8 mmol/L (5-15); ASPARTATE AMINO TRANSFERASE 17 U/L (15-37); CALCIUM 8.8 MG/DL (8.5-10.1); CARBON DIOXIDE 27 MMOL/L (21-32); CHLORIDE 102 MMOL/L (98-107); CREATININE 1.2 MG/DL (0.55-1.30); POTASSIUM 4.3 MMOL/L (3.5-5.1); SODIUM 137 MMOL/L (136-145); TOTAL PROTEIN 6.6 G/DL (6.4-8.2)
[2017-09-07 07:57] LABS: CRP QUANT 12.7 mg/dL (0.00-0.90); MAGNESIUM 2.3 MG/DL (1.8-2.4); PHOSPHORUS 4.1 MG/DL (2.5-4.9)
[2017-09-07 08:06] LABS: BILIRUBIN,DIRECT 0.4 MG/DL (0.0-0.3)
[2017-09-07 08:23] VITALS: BP 105/64
[2017-09-07] MEDS: ARIPiprazole 10mg tab ORAL SCH (08:57)
[2017-09-07] MEDS: Nystatin Powder 100,000 units/gm 15gm TOPIC SCH ×3 (08:58→17:54)
[2017-09-07] MEDS: Heparin 5000 units/ml inj SUBQ SCH (09:00)
[2017-09-07] MEDS: Pantoprazole Inj IV SCH (09:11)
--- NOTE | 2017-09-07 09:27 | General Surgery Progress Note ---
General Surgery-Progress Note Subjective Symptoms: improved, tolerating diet, voiding well, passing flatus, BM Additional Comments pain improved. no n/v/f/c. labs improved. Objective Last 24 Hour Vital Signs Date Time Temp Pulse Resp B/P (MAP) Pulse Ox O2 Delivery O2 Flow Rate FiO2 09/07/17 09:00 104 105/64 09/07/17 08:23 98.0 104 20 105/64 95 Room Air 09/07/17 04:00 98.6 89 20 126/60 95 Room Air 09/07/17 01:35 99.0 09/07/17 00:00 99.0 82 20 145/65 96 Room Air 09/06/17 21:51 Room Air 09/06/17 21:50 94 Room Air 09/06/17 20:00 99.3 87 18 110/65 94 Room Air 09/06/17 16:00 97.0 76 19 120/65 95 09/06/17 12:00 97.6 88 18 118/73 97 Room Air I&O Intake and Output 09/07/17 09/08/17 19:00 07:00 Intake Total 240 ml Output Total 300 ml Balance -60 ml Intake Oral 240 ml Output Urine Total 300 ml Dressing: dry Wound: clean Drains: none Cardiovascular: RSR Respiratory: clear Abdomen: soft, non-tender, present bowel sounds Extremities: no tenderness Laboratory Tests Test 09/07/17 05:25 White Blood Count 9.0 K/UL (4.8-10.8) Red Blood Count 4.75 M/UL (4.70-6.10) Hemoglobin 11.4 G/DL (14.2-18.0) L Hematocrit 36.3 % (42.0-52.0) L Mean Corpuscular Volume 77 FL (80-99) L Mean Corpuscular Hemoglobin 24.0 PG (27.0-31.0) L Mean Corpuscular Hemoglobin Concent 31.4 G/DL (32.0-36.0) L Red Cell Distribution Width 16.3 % (11.6-14.8) H Platelet Count 394 K/UL (150-450) Mean Platelet Volume 7.2 FL (6.5-10.1) Neutrophils (%) (Auto) 64.2 % (45.0-75.0) Lymphocytes (%) (Auto) 22.7 % (20.0-45.0) Monocytes (%) (Auto) 7.8 % (1.0-10.0) Eosinophils (%) (Auto) 4.4 % (0.0-3.0) H Basophils (%) (Auto) 0.8 % (0.0-2.0) Erythrocyte Sedimentation Rate 46 MM/HR (0-20) H Sodium Level 137 MMOL/L (136-145) Potassium Level 4.3 MMOL/L (3.5-5.1) Chloride Level 102 MMOL/L (98-107) Carbon Dioxide Level 27 MMOL/L (21-32) Anion Gap 8 mmol/L (5-15) Blood Urea Nitrogen 20 mg/dL (7-18) H Creatinine 1.2 MG/DL (0.55-1.30) Estimat Glomerular Filtration Rate mL/min (>60) Glucose Level 103 MG/DL (74-106) Calcium Level 8.8 MG/DL (8.5-10.1) Phosphorus Level 4.1 MG/DL (2.5-4.9) Magnesium Level 2.3 MG/DL (1.8-2.4) Total Bilirubin 1.4 MG/DL (0.2-1.0) H Direct Bilirubin 0.4 MG/DL (0.0-0.3) H Aspartate Amino Transf (AST/SGOT) 17 U/L (15-37) Alanine Aminotransferase (ALT/SGPT) 20 U/L (12-78) Alkaline Phosphatase 171 U/L (46-116) H C-Reactive Protein, Quantitative 12.7 mg/dL (0.00-0.90) H Total Protein 6.6 G/DL (6.4-8.2) Albumin 2.6 G/DL (3.4-5.0) L Globulin 4.0 g/dL Albumin/Globulin Ratio 0.6 (1.0-2.7) L Amylase Level 27 U/L (25-115) Lipase 60 U/L (73-393) L Plan Problems: (1) Abdominal pain Assessment & Plan: 72M with abdominal dillon. had lap erlin 09/03/17 at outside facility. urinary retention post op while at home which resolved with june. then had abdominal pain. CT reviewed. given recent surgery free air is anticipated and unlikely bowel perforation. Afebrile, HD stable, and exam with minimal tenderness Having BM's, good urine output without difficulty since june removed. labs improved today and t bili trending down. -diet as tolerated. -ambulate and OOB okay to d/c from surgical standpoint follow up with surgeon in 1-2 weeks as scheduled. thank you for this consult. Marcel Thompson Sep 07, 2017 09:27
[2017-09-07 11:57] VITALS: BP 118/69
[2017-09-07] MEDS ORDERED: ACETAMINOPHEN-1 EAC1 ORAL (12:41)
[2017-09-07] MEDS: Miralax 17gm pkt ORAL PRN (13:07)
--- NOTE | 2017-09-07 14:31 | GI Progress Note ---
Assessment/Plan Problems: (1) Perforated abdominal viscus SNOMED: 653109775 (2) Ileus, postoperative ICD Codes: K91.89 - Other postprocedural complications and disorders of digestive system; K56.7 - Ileus, unspecified SNOMED: 024009769 (3) Abdominal pain ICD Codes: R10.9 - Abdominal pain SNOMED: [id number] Status: doing well, stable Status Narrative Discussed with Dr. Veloz. Assessment/Plan okay for DC per GI standpoint fu surgical recs non operative management soft diet, tolerating electrolyte replacement ambulate and OOB pain mgmt imaging studies prn PT eval The patient was seen and examined at bedside and all new and available data was reviewed in the patients chart. I agree with the above findings, impression and plan. (Patient seen earlier today. Signature stamp does not reflect patient encounter time.). - Sonny Veloz MD Subjective Subjective abdominal pain better, but still present Objective Last 24 Hour Vital Signs Date Time Temp Pulse Resp B/P (MAP) Pulse Ox O2 Delivery O2 Flow Rate FiO2 09/07/17 11:57 97.0 89 20 118/69 98 Room Air 09/07/17 09:00 104 105/64 09/07/17 08:23 98.0 104 20 105/64 95 Room Air 09/07/17 04:00 98.6 89 20 126/60 95 Room Air 09/07/17 01:35 99.0 09/07/17 00:00 99.0 82 20 145/65 96 Room Air 09/06/17 21:51 Room Air 09/06/17 21:50 94 Room Air 09/06/17 20:00 99.3 87 18 110/65 94 Room Air 09/06/17 16:00 97.0 76 19 120/65 95 Intake and Output 09/07/17 09/08/17 19:00 07:00 Intake Total 480 ml Output Total 600 ml Balance -120 ml Intake Oral 480 ml Output Urine Total 600 ml Laboratory Tests Test 09/07/17 05:25 White Blood Count 9.0 K/UL (4.8-10.8) Red Blood Count 4.75 M/UL (4.70-6.10) Hemoglobin 11.4 G/DL (14.2-18.0) L Hematocrit 36.3 % (42.0-52.0) L Mean Corpuscular Volume 77 FL (80-99) L Mean Corpuscular Hemoglobin 24.0 PG (27.0-31.0) L Mean Corpuscular Hemoglobin Concent 31.4 G/DL (32.0-36.0) L Red Cell Distribution Width 16.3 % (11.6-14.8) H Platelet Count 394 K/UL (150-450) Mean Platelet Volume 7.2 FL (6.5-10.1) Neutrophils (%) (Auto) 64.2 % (45.0-75.0) Lymphocytes (%) (Auto) 22.7 % (20.0-45.0) Monocytes (%) (Auto) 7.8 % (1.0-10.0) Eosinophils (%) (Auto) 4.4 % (0.0-3.0) H Basophils (%) (Auto) 0.8 % (0.0-2.0) Erythrocyte Sedimentation Rate 46 MM/HR (0-20) H Sodium Level 137 MMOL/L (136-145) Potassium Level 4.3 MMOL/L (3.5-5.1) Chloride Level 102 MMOL/L (98-107) Carbon Dioxide Level 27 MMOL/L (21-32) Anion Gap 8 mmol/L (5-15) Blood Urea Nitrogen 20 mg/dL (7-18) H Creatinine 1.2 MG/DL (0.55-1.30) Estimat Glomerular Filtration Rate mL/min (>60) Glucose Level 103 MG/DL (74-106) Calcium Level 8.8 MG/DL (8.5-10.1) Phosphorus Level 4.1 MG/DL (2.5-4.9) Magnesium Level 2.3 MG/DL (1.8-2.4) Total Bilirubin 1.4 MG/DL (0.2-1.0) H Direct Bilirubin 0.4 MG/DL (0.0-0.3) H Aspartate Amino Transf (AST/SGOT) 17 U/L (15-37) Alanine Aminotransferase (ALT/SGPT) 20 U/L (12-78) Alkaline Phosphatase 171 U/L (46-116) H C-Reactive Protein, Quantitative 12.7 mg/dL (0.00-0.90) H Total Protein 6.6 G/DL (6.4-8.2) Albumin 2.6 G/DL (3.4-5.0) L Globulin 4.0 g/dL Albumin/Globulin Ratio 0.6 (1.0-2.7) L Amylase Level 27 U/L (25-115) Lipase 60 U/L (73-393) L Height (Feet): 5 Height (Inches): 11.00 Weight (Pounds): 215 General Appearance: WD/WN, no apparent distress, alert Cardiovascular: normal rate Respiratory/Chest: normal breath sounds, no respiratory distress Abdominal Exam: normal bowel sounds, non tender, soft, incision site Extremities: normal range of motion, non-tender Barbi Matson N.P. Sep 07, 2017 14:31 AKIL VELOZ Sep 09, 2017 13:29
--- NOTE | 2017-09-07 14:47 | Infectious Diseases Prog Note ---
Assessment/Plan Assessment/Plan Abx: None Assessment: Abdominal pain- likely 2ry to ileus -Abd us: Surgically absent gallbladder. Mildly dilated common bile duct, most likely related to age and postcholecystectomy state. Downstream obstruction not completely excludable, however, and correlation with liver function tests is recommended. No other significant findings -CT abd/p:scattered tiny pockets of gas Leukocytosis- likely reactive- now resolved -afebrile -u/a no pyuria but hematuria; ucx Neg s/p lap cholecystectomy 09/03 Post-op urinary retention s/p Bella placement HTN MDD Plan: -Continue to monitor off abx -continue nystatin powder for area between buttocks for fungal infection -pain control -wound care -Monitor CBC/BMP, temperatures -awaiting discharge Thank you for this consultation. Will continue to follow along with you. Discussed with RN Subjective Allergies: Coded Allergies: No Known Allergies (Unverified , 08/18/13) Subjective afebrile no leukocytosis ucx neg Objective Vital Signs Last 24 Hour Vital Signs Date Time Temp Pulse Resp B/P (MAP) Pulse Ox O2 Delivery O2 Flow Rate FiO2 09/07/17 11:57 97.0 89 20 118/69 98 Room Air 09/07/17 09:00 104 105/64 09/07/17 08:23 98.0 104 20 105/64 95 Room Air 09/07/17 04:00 98.6 89 20 126/60 95 Room Air 09/07/17 01:35 99.0 09/07/17 00:00 99.0 82 20 145/65 96 Room Air 09/06/17 21:51 Room Air 09/06/17 21:50 94 Room Air 09/06/17 20:00 99.3 87 18 110/65 94 Room Air 09/06/17 16:00 97.0 76 19 120/65 95 Height (Feet): 5 Height (Inches): 11.00 Weight (Pounds): 215 Objective General Appearance: WD/WN Lines, tubes and drains: peripheral, central line HEENT: normocephalic, atraumatic Neck: non-tender, supple Respiratory/Chest: chest wall non-tender, lungs clear Cardiovascular/Chest: normal peripheral pulses, normal rate, regularly irregular Abdomen: normal bowel sounds, non tender, surgical incision healing well, no signs of infection Back: area of irritation, with withish sediments on area between buttocks. Laboratory Tests Test 09/07/17 05:25 White Blood Count 9.0 K/UL (4.8-10.8) Red Blood Count 4.75 M/UL (4.70-6.10) Hemoglobin 11.4 G/DL (14.2-18.0) L Hematocrit 36.3 % (42.0-52.0) L Mean Corpuscular Volume 77 FL (80-99) L Mean Corpuscular Hemoglobin 24.0 PG (27.0-31.0) L Mean Corpuscular Hemoglobin Concent 31.4 G/DL (32.0-36.0) L Red Cell Distribution Width 16.3 % (11.6-14.8) H Platelet Count 394 K/UL (150-450) Mean Platelet Volume 7.2 FL (6.5-10.1) Neutrophils (%) (Auto) 64.2 % (45.0-75.0) Lymphocytes (%) (Auto) 22.7 % (20.0-45.0) Monocytes (%) (Auto) 7.8 % (1.0-10.0) Eosinophils (%) (Auto) 4.4 % (0.0-3.0) H Basophils (%) (Auto) 0.8 % (0.0-2.0) Erythrocyte Sedimentation Rate 46 MM/HR (0-20) H Sodium Level 137 MMOL/L (136-145) Potassium Level 4.3 MMOL/L (3.5-5.1) Chloride Level 102 MMOL/L (98-107) Carbon Dioxide Level 27 MMOL/L (21-32) Anion Gap 8 mmol/L (5-15) Blood Urea Nitrogen 20 mg/dL (7-18) H Creatinine 1.2 MG/DL (0.55-1.30) Estimat Glomerular Filtration Rate mL/min (>60) Glucose Level 103 MG/DL (74-106) Calcium Level 8.8 MG/DL (8.5-10.1) Phosphorus Level 4.1 MG/DL (2.5-4.9) Magnesium Level 2.3 MG/DL (1.8-2.4) Total Bilirubin 1.4 MG/DL (0.2-1.0) H Direct Bilirubin 0.4 MG/DL (0.0-0.3) H Aspartate Amino Transf (AST/SGOT) 17 U/L (15-37) Alanine Aminotransferase (ALT/SGPT) 20 U/L (12-78) Alkaline Phosphatase 171 U/L (46-116) H C-Reactive Protein, Quantitative 12.7 mg/dL (0.00-0.90) H Total Protein 6.6 G/DL (6.4-8.2) Albumin 2.6 G/DL (3.4-5.0) L Globulin 4.0 g/dL Albumin/Globulin Ratio 0.6 (1.0-2.7) L Amylase Level 27 U/L (25-115) Lipase 60 U/L (73-393) L Current Medications Medications (Trade) Dose Ordered Sig/Ritu Route PRN Reason Start Time Stop Time Status Last Admin Dose Admin Acetaminophen (Tylenol) 650 mg Q4H PRN ORAL fever 09/03/17 23:45 10/03/17 23:44 Al Hydroxide/Mg Hydroxide (Mylanta II) 30 ml Q6H PRN ORAL dyspepsia 09/03/17 23:45 10/03/17 23:44 Amlodipine Besylate (Norvasc) 5 mg DAILY ORAL 09/04/17 09:00 10/04/17 08:59 09/05/17 08:31 Aripiprazole (Abilify) 20 mg DAILY ORAL 09/04/17 09:00 10/04/17 08:59 09/07/17 08:57 Clonidine HCl (Catapres) 0.1 mg Q6H PRN ORAL For High Blood Pressure 09/04/17 17:00 10/04/17 16:59 09/05/17 12:38 Dextrose (Dextrose 50%) STAT PRN IV Hypoglycemia 09/03/17 23:45 10/03/17 23:44 Diphenhydramine HCl (Benadryl) 25 mg Q6H PRN ORAL Itching/Pruritis 09/03/17 23:45 10/03/17 23:44 Heparin Sodium (Porcine) (Heparin 5000 units/ml) 5,000 units EVERY 12 HOURS SUBQ 09/04/17 09:00 10/04/17 08:59 09/07/17 09:00 Ketorolac Tromethamine (Toradol 30mg) 15 mg Q6H PRN IV Moderate Pain (Pain Scale 4-6) 09/04/17 14:30 09/09/17 14:29 09/05/17 12:23 Lorazepam (Ativan 2mg/ml 1ml) 1 mg EVERY 4 HOURS PRN IV agitation 09/03/17 23:45 09/10/17 23:44 09/06/17 21:58 Metoclopramide HCl (Reglan) 10 mg Q6H PRN IVP servere nauasea 09/03/17 23:45 10/03/17 23:44 Morphine Sulfate (Morphine Sulfate) 4 mg Q4H PRN IVP Severe Pain (Pain Scale 7-10) 09/04/17 10:15 09/11/17 10:14 09/07/17 13:07 Nitroglycerin (Ntg) 0.4 mg Q5M X 3 DOSES PRN SL Prn Chest Pain 09/03/17 23:45 10/03/17 23:44 09/05/17 12:50 Nystatin (Nystop Powder) 1 applic THREE TIMES A DAY TOPIC 09/06/17 14:00 10/06/17 13:59 09/07/17 13:06 Ondansetron HCl (Zofran) 4 mg Q6H PRN IVP Nausea & Vomiting 09/03/17 23:45 10/03/17 23:44 Pantoprazole (Protonix) 40 mg DAILY IV 09/04/17 09:00 10/04/17 08:59 09/07/17 09:11 Polyethylene Glycol (Miralax) 17 gm HSPRN PRN ORAL Constipation 09/03/17 23:45 10/03/17 23:44 09/07/17 13:07 Promethazine HCl (Phenergan) 25 mg EVERY 8 HOURS PRN IV refractory nausea 09/04/17 08:15 10/03/17 23:44 Tamsulosin HCl (Flomax) 0.4 mg BEDTIME ORAL 09/05/17 21:00 10/05/17 20:59 09/06/17 21:02 Temazepam (Restoril) 15 mg HSPRN PRN ORAL Insomnia 09/03/17 23:45 09/10/17 23:44 09/05/17 22:00 Cheyenne Dozier M.D. Sep 07, 2017 14:47
[2017-09-07 16:13] VITALS: BP 123/69
--- NOTE | 2017-09-07 16:22 | Pulmonology Progress Note ---
Assessment/Plan Problems: (1) Leukocytosis (2) Hx laparoscopic cholecystectomy (3) Urinary retention (4) Abdominal pain (5) Psychosis (6) HTN (hypertension) Assessment/Plan pain is better bp better dc planning for today Subjective ROS Limited/Unobtainable: No Constitutional: Reports: no symptoms HEENT: Repors: no symptoms Respiratory: Reports: no symptoms Allergies: Coded Allergies: No Known Allergies (Unverified , 08/18/13) Objective Last 24 Hour Vital Signs Date Time Temp Pulse Resp B/P (MAP) Pulse Ox O2 Delivery O2 Flow Rate FiO2 09/07/17 16:13 98.1 64 18 123/69 97 Room Air 09/07/17 11:57 97.0 89 20 118/69 98 Room Air 09/07/17 09:00 104 105/64 09/07/17 08:23 98.0 104 20 105/64 95 Room Air 09/07/17 04:00 98.6 89 20 126/60 95 Room Air 09/07/17 01:35 99.0 09/07/17 00:00 99.0 82 20 145/65 96 Room Air 09/06/17 21:51 Room Air 09/06/17 21:50 94 Room Air 09/06/17 20:00 99.3 87 18 110/65 94 Room Air Intake and Output 09/07/17 09/08/17 19:00 07:00 Intake Total 480 ml Output Total 600 ml Balance -120 ml Intake Oral 480 ml Output Urine Total 600 ml General Appearance: WD/WN HEENT: normocephalic Respiratory/Chest: chest wall non-tender, no respiratory distress Cardiovascular: normal rate Abdomen: normal bowel sounds, non distended Extremities: no cyanosis Skin: no rash, no ulcers Laboratory Tests 09/07/17 05:25: White Blood Count 9.0, Red Blood Count 4.75, Hemoglobin 11.4L, Hematocrit 36.3L , Mean Corpuscular Volume 77L, Mean Corpuscular Hemoglobin 24.0L, Mean Corpuscular Hemoglobin Concent 31.4L, Red Cell Distribution Width 16.3H, Platelet Count 394, Mean Platelet Volume 7.2, Neutrophils (%) (Auto) 64.2, Lymphocytes (%) (Auto) 22.7, Monocytes (%) (Auto) 7.8, Eosinophils (%) (Auto) 4.4H, Basophils (%) (Auto) 0.8, Erythrocyte Sedimentation Rate 46H, Sodium Level 137, Potassium Level 4.3, Chloride Level 102, Carbon Dioxide Level 27, Anion Gap 8, Blood Urea Nitrogen 20H, Creatinine 1.2, Estimat Glomerular Filtration Rate , Glucose Level 103, Calcium Level 8.8, Phosphorus Level 4.1, Magnesium Level 2.3, Total Bilirubin 1.4H, Direct Bilirubin 0.4H, Aspartate Amino Transf (AST/SGOT) 17, Alanine Aminotransferase (ALT/SGPT) 20, Alkaline Phosphatase 171H, C-Reactive Protein, Quantitative 12.7H, Total Protein 6.6, Albumin 2.6L, Globulin 4.0, Albumin/Globulin Ratio 0.6L, Amylase Level 27, Lipase 60L Current Medications Medications (Trade) Dose Ordered Sig/Ritu Route PRN Reason Start Time Stop Time Status Last Admin Dose Admin Acetaminophen (Tylenol) 650 mg Q4H PRN ORAL fever 09/03/17 23:45 10/03/17 23:44 Al Hydroxide/Mg Hydroxide (Mylanta II) 30 ml Q6H PRN ORAL dyspepsia 09/03/17 23:45 10/03/17 23:44 Amlodipine Besylate (Norvasc) 5 mg DAILY ORAL 09/04/17 09:00 10/04/17 08:59 09/05/17 08:31 Aripiprazole (Abilify) 20 mg DAILY ORAL 09/04/17 09:00 10/04/17 08:59 09/07/17 08:57 Clonidine HCl (Catapres) 0.1 mg Q6H PRN ORAL For High Blood Pressure 09/04/17 17:00 10/04/17 16:59 09/05/17 12:38 Dextrose (Dextrose 50%) STAT PRN IV Hypoglycemia 09/03/17 23:45 10/03/17 23:44 Diphenhydramine HCl (Benadryl) 25 mg Q6H PRN ORAL Itching/Pruritis 09/03/17 23:45 10/03/17 23:44 Heparin Sodium (Porcine) (Heparin 5000 units/ml) 5,000 units EVERY 12 HOURS SUBQ 09/04/17 09:00 10/04/17 08:59 09/07/17 09:00 Ketorolac Tromethamine (Toradol 30mg) 15 mg Q6H PRN IV Moderate Pain (Pain Scale 4-6) 09/04/17 14:30 09/09/17 14:29 09/05/17 12:23 Lorazepam (Ativan 2mg/ml 1ml) 1 mg EVERY 4 HOURS PRN IV agitation 09/03/17 23:45 09/10/17 23:44 09/06/17 21:58 Metoclopramide HCl (Reglan) 10 mg Q6H PRN IVP servere nauasea 09/03/17 23:45 10/03/17 23:44 Morphine Sulfate (Morphine Sulfate) 4 mg Q4H PRN IVP Severe Pain (Pain Scale 7-10) 09/04/17 10:15 09/11/17 10:14 09/07/17 13:07 Nitroglycerin (Ntg) 0.4 mg Q5M X 3 DOSES PRN SL Prn Chest Pain 09/03/17 23:45 10/03/17 23:44 09/05/17 12:50 Nystatin (Nystop Powder) 1 applic THREE TIMES A DAY TOPIC 09/06/17 14:00 10/06/17 13:59 09/07/17 13:06 Ondansetron HCl (Zofran) 4 mg Q6H PRN IVP Nausea & Vomiting 09/03/17 23:45 10/03/17 23:44 Pantoprazole (Protonix) 40 mg DAILY ORAL 09/08/17 09:00 10/08/17 08:59 Polyethylene Glycol (Miralax) 17 gm HSPRN PRN ORAL Constipation 09/03/17 23:45 10/03/17 23:44 09/07/17 13:07 Promethazine HCl (Phenergan) 25 mg EVERY 8 HOURS PRN IV refractory nausea 09/04/17 08:15 10/03/17 23:44 Tamsulosin HCl (Flomax) 0.4 mg BEDTIME ORAL 09/05/17 21:00 10/05/17 20:59 09/06/17 21:02 Temazepam (Restoril) 15 mg HSPRN PRN ORAL Insomnia 09/03/17 23:45 09/10/17 23:44 09/05/17 22:00 RHONDA AMOR Sep 07, 2017 16:22
--- NOTE | 2017-09-10 09:31 | Discharge Summary ---
Discharge Summary Hospital Course Date of Admission Sep 03, 2017 at 23:32 Date of Discharge Sep 07, 2017 at 18:40 Admitting Diagnosis abdominal pain HPI Michael Loera is a 72 year old male who was admitted on Sep 03, 2017 at 23: 32 for Abdominal Pain Hospital Course dc summary #[id number] Discharge Medications Continued Medications: Acetaminophen With Codeine (T#3) (Tylenol #3 Tab*) Y Tab 1 TAB ORAL Q6HR PRN for For Pain, #20 TAB Amlodipine Besylate (Norvasc) 5 Mg Tab 5 MG ORAL DAILY, TAB Aripiprazole* (Abilify*) 10 Mg Tablet 20 MG ORAL DAILY, TAB Duloxetine Hcl* (Cymbalta*) 30 Mg Capsule.dr 30 MG ORAL DAILY, CAP Valsartan (Diovan) 80 Mg Tab 160 MG ORAL DAILY, TAB Discharge Condition Upon Discharge: stable Discharge Disposition Patient was discharged to Home (01) Discharge Diagnoses: Discharge Instructions Discharge Instructions Special Instructions I have been assigned to complete a D/C Summary on this account. I was not involved in the patient management Leena Jimenez NP ([facility]) Sep 10, 2017 09:31
--- NOTE | 2017-09-11 06:45 | Discharge Summary 2 SIG ---
DATE OF ADMISSION: 09/03/2017 DATE OF DISCHARGE: 09/07/2017 REASON FOR ADMISSION: 72-year-old male, who earlier that morning had laparoscopic cholecystectomy and afterwards was unable to urinate. He went to [facility] for evaluation. Bella catheter was placed. The patient returned home, but experienced increased abdominal pain and came to [place] ED for evaluation. Upon evaluation, the patient had undergone CT of the abdomen and pelvis, which revealed scattered tiny pockets of gas suggested hollow viscus perforation, expected due to recent surgery. Subsequently, abdominal ultrasound was done, which revealed mildly dilated common bile duct, most likely related to age and postcholecystectomy state. No hydronephrosis. No focal abnormality. Both kidneys demonstrated normal echogenicity. Upon presentation, there was no leukocytosis. Stable hemoglobin and hematocrit. Electrolytes stable. Slightly elevated AST - 45. Lipase within normal limits. Urinalysis revealed no pyuria, showed microscopic blood and few bacteria. The patient upon evaluation denied chest pain, shortness of breath, nausea, vomiting, fever, or chills. Pain described as 4/10 on a scale of 1 to 10. In the emergency department, blood pressure was elevated at 189/93. The patient was admitted with workup for abdominal pain, hypertension, and recent laparoscopic cholecystectomy. HOSPITAL COURSE: The patient was admitted. Surgery and GI consults were requested. Surgeon personally reviewed CT of the abdomen and stated that there was no concern over the findings given the recent surgery. He recommended pain management. NPO. IV fluids. Antiemetic as needed. Symptomatic treatment. The patient was afebrile and hemodynamically stable. Exam showed incisional tenderness and mild distention. The patient did have on exam hypoactive bowel sounds. The patient likely had postoperative ileus and reactive leukocytosis postoperatively as per surgeon. (leukocytosis the next day) . Patient was encouraged to ambulate, kept NPO until bowel function returned. IV fluids were continued. The next day, the patient was already passing flatus and had bowel movement. The patient was started on the diet as tolerated and slowly advanced. Symptomatic treatment provided. Pain management was addressed. Blood pressure was managed with calcium channel amna and ARB. Blood pressure stabilized as pain was under control. GI prophylaxis provided. Bowel regimen instituted. Electrolytes replaced as needed. Clonidine added as needed in addition for blood pressure management. DVT prophylaxis provided. GI closely followed the patient as well. Postoperative ileus resolved. The patient was able to tolerate diet. The patient was working with physical therapists, ambulated. Bella was discontinued. The patient was able to urinate. Infectious Diseases consult was requested due to leukocytosis. According to the Infectious Disease specialist, leukocytosis was likely reactive secondary to recent surgery, which resolved. The patient was afebrile. Urinalysis negative. Urine culture negative. ID specialist recommended to continue monitor the patient off antibiotics. Abdominal pain resolved. Abdominal pain was likely secondary to the ileus. Wound care nurse seen and evaluated the patient for sacral stage I decubitus ulcer present for admission. Wound care provided as per wound care nurse. The patient was stable for discharge home and follow up with medical doctor. FINAL DIAGNOSES: 1. Abdominal pain, likely secondary to ileus, resolved. 2. Postoperative ileus. 3. Hypertension. 4. Urinary retention, resolved. 5. History of recent laparoscopic cholecystectomy. 6. Psychosis. 7. Hypertension. 8. Sacral decubitus stage I, present on admission. DISCHARGE MEDICATIONS: See medication reconciliation list. DISCHARGE INSTRUCTIONS: The patient was discharged home. Follow up with primary medical doctor. Reynaldo Perez M.D. I have been assigned to dictate discharge summary on this account and I was not involved in the patient's management. Leena Jimenez ([facility]) N.P. DR: Ledy JOB#: [id number] CC: [place]
== END 2017-09-07 18:40 | disposition home or self-care (01) | DRG 394 ==
LOC: EDBD 20:25 → EMR 20:50 → 3E 23:32 → EDBEDREQ 09-04 00:10 → 3E 09-04 11:30
DX: K91.89 Other postprocedural complications and disorders of digestive system (principal); K56.7 Ileus, unspecified; L89.151 Pressure ulcer of sacral region, stage 1; Y83.8 Other surgical procedures as the cause of abnormal reaction of the patient, or of later complication, without mention of misadventure at the time of the procedure; I10 Essential (primary) hypertension; R33.9 Retention of urine, unspecified; Z90.49 Acquired absence of other specified parts of digestive tract; F29 Unspecified psychosis not due to a substance or known physiological condition
CPT/HCPCS: 36415; 71010; 74000; 74177; 76700; 80053; 81003; 82150; 82248; 83605; 83690; 83735; 84100; 85025; 85651; 85730; 86140; 87081; 87086; 94760; 99285; J2405; J8499

== ENCOUNTER 2018-12-13 12:07 | Emergency (ER) | payer MEDICARE, MEDICAID ==
[~2018-12-13] VITALS: Ht 180.3 cm; Wt 96.6 kg
[~2018-12-13 12:07] MED LIST changes: +ACETAMINOPHEN-1 EAC1 ORAL; +CYMBALTA30 MG ORAL; +DIOVAN80 MG ORAL
--- NOTE | 2018-12-13 12:10 | NUR ---
ED Nurse Note: PAtient is brought in by ambulance from home patient c/o feeling weak and has dizziness since this morning. patient reports that he lives by himself. patient unsure if he fell or lost consciousness.
[2018-12-13] MEDS ORDERED: [UNRECOGNIZED DRUG - OTHER] ORAL (12:25)
[2018-12-13] MEDS ORDERED: LIPITOR10 MG ORAL (12:25)
[2018-12-13] MEDS ORDERED: ABILIFY10 MG ORAL (12:26)
[2018-12-13] MEDS ORDERED: SINEMET 10-1001 EACH ORAL (12:26)
--- NOTE | 2018-12-13 12:37 | NUR ---
ED Nurse Note: PAtient went down for CT
[2018-12-13 12:57] LABS: APPEARANCE,URINE CLEAR; BILIRUBIN, URINE NEGATIVE (NEGATIVE); COLOR,URINE PALE YELLOW; GLUCOSE, URINE (UA) NEGATIVE (NEGATIVE); KETONES,URINE NEGATIVE (NEGATIVE); LEUKOCYTE ESTERASE ,URINE NEGATIVE (NEGATIVE); NITRITE,URINE NEGATIVE (NEGATIVE); PH,URINE 6 (4.5-8.0); PROTEIN,URINE NEGATIVE (NEGATIVE); UROBILINOGEN,URINE NORMAL MG/DL (0.0-1.0)
[2018-12-13 13:01] LABS: ANION GAP 4 mmol/L (5-15); BLOOD UREA NITROGEN 16 mg/dL (7-18); CALCIUM 9.4 MG/DL (8.5-10.1); CARBON DIOXIDE 28 MMOL/L (21-32); CHLORIDE 107 MMOL/L (98-107); CREATININE 1.3 MG/DL (0.55-1.30); POTASSIUM 4.7 MMOL/L (3.5-5.1); SODIUM 139 MMOL/L (136-145)
[2018-12-13 13:14] LABS: ALANINE AMINOTRANSFERASE 12 U/L (12-78); ALBUMIN 3.5 G/DL (3.4-5.0); ALKALINE PHOSPHATASE 124 U/L (46-116); ASPARTATE AMINO TRANSFERASE 16 U/L (15-37); BILIRUBIN,TOTAL 0.5 MG/DL (0.2-1.0); CKMB 0.8 NG/ML (0.0-3.6); CREATINE KINASE 145 U/L (26-308)
[2018-12-13 13:21] LABS: BASOPHILS % (AUTO) 1.6 % (0.0-2.0); EOSINOPHILS % (AUTO) 3.4 % (0.0-3.0); HEMATOCRIT 49.7 % (42.0-52.0); HEMOGLOBIN 15.6 G/DL (14.2-18.0); LYMPHOCYTES % (AUTO) 30.5 % (20.0-45.0); MEAN CORPUSCULAR VOLUME 84 FL (80-99); MONOCYTES % (AUTO) 8.1 % (1.0-10.0); NEUTROPHILS % (AUTO) 56.4 % (45.0-75.0); PLATELET COUNT 272 K/UL (150-450); RED BLOOD COUNT 5.93 M/UL (4.70-6.10); RED CELL DISTRIBUTION WIDTH 14.9 % (11.6-14.8); WHITE BLOOD COUNT 6.4 K/UL (4.8-10.8)
--- NOTE | 2018-12-13 13:37 | Diagnostic Imaging Report ---
Indications: Dizziness Technique: Spiral acquisitions obtained through the brain. Angled axial and coronal 5 x 5 mm slices were reconstructed. Total dose length product 1393.68 mGycm. CTDI vol(s) 70.38 mGy. Dose reduction achieved using automated exposure control Comparison: None. Findings: There is age-related enlargement of the ventricles and extra axial CSF spaces. There is fairly extensive periventricular deep white matter low-attenuation, consistent with chronic microvascular ischemic change. Old lacunar infarcts are seen in the basal ganglia bilaterally, the largest on the left extending into the centrum semiovale. There is an old right cerebellar cortical infarct. No acute intracranial hemorrhage nor edema, mass effect, nor midline shift. Duval-white differentiation is otherwise normal. The calvarium is intact. Visualized orbits and sinuses are unremarkable. Impression: Bilateral old lacunar infarcts Other chronic and age-related changes as described Negative for acute intracranial bleed or mass effect The CT scanner at [facility] is accredited by the [employer] and the scans are performed using protocols designed to limit radiation exposure to as low as reasonably achievable to attain images of sufficient resolution adequate for diagnostic evaluation.
[2018-12-13 14:19] VITALS: BP 125/81
--- NOTE | 2018-12-13 14:44 | Emergency Room Report ---
History of Present Illness General Chief Complaint: Dizziness Source: Patient Present Illness HPI Patient presents with complaints of severe dizziness Reports that yesterday he had an episode of severe dizziness and thinks he might of passed out Denies any chest pain or shortness of breath Today upon awaking he again had severe dizziness feels worse with standing or moving denies any focal weakness denies any abdominal pain denies any headache Allergies: Coded Allergies: No Known Allergies (Unverified , 08/18/13) Patient History Past Medical History: see triage record Pertinent Family History: none Reviewed Nursing Documentation: PMH: Agreed; PSxH: Agreed Nursing Documentation-PMH Hx Cardiac Problems: No - parkison dz Hx Hypertension: Yes Hx Cerebrovascular Accident: Yes - right side deficit Review of Systems All Other Systems: negative except mentioned in HPI Physical Exam Vital Signs Date Time Temp Pulse Resp B/P (MAP) Pulse Ox O2 Delivery O2 Flow Rate FiO2 12/13/18 12:01 98.1 94 18 140/85 100 Room Air Sp02 EP Interpretation: reviewed, normal General Appearance: well appearing, no apparent distress Head: normocephalic, atraumatic Eyes: bilateral eye PERRL, bilateral eye EOMI ENT: hearing grossly normal, normal pharynx, TMs + canals normal, uvula midline Neck: full range of motion, supple, no meningismus, no bony tend Respiratory: lungs clear, normal breath sounds, no rhonchi, no respiratory distress, no retraction, no accessory muscle use Cardiovascular #1: normal peripheral pulses, regular rate, rhythm, no edema, no gallop, no JVD, no murmur Gastrointestinal: normal bowel sounds, non tender, soft, no mass, no organomegaly, non-distended, no guarding, no hernia, no pulsatile mass, no rebound Genitourinary: no CVA tenderness Musculoskeletal: normal inspection Neurologic: oriented x3, responsive, tooth cutter pinion III-XII nml as tested, motor strength/ tone normal, sensory intact Psychiatric: mood/affect normal Skin: normal color, no rash, warm/dry, palpation normal Lymphatic: normal inspection, no adenopathy Medical Decision Making Diagnostic Impression: Primary Impression: Dizziness Additional Impression: HTN (hypertension) ER Course Patient is a fairly complex patient with multiple differential to consideration including but not limited to cardiac cardiopulmonary and vascular emergencies Other neurological and neurosurgical pathology also entertained patient CT Does not show any acute disease blood work is also at baseline levels However given the patient's acute symptoms age and risk factors patient will require inpatient care Secondary to insurance purposes was requested for transfer CBC normal Chemistry normal UA negative EKG Diagnostic Results Rate: normal Rhythm: NSR ST Segments: no acute changes Rhythm Strip Diag. Results EP Interpretation: yes Rate: 60 Rhythm: NSR, no PVC's, no ectopy Chest X-Ray Diagnostic Results Chest X-Ray Diagnostic Results : Chest X-Ray Ordered: Yes # of Views/Limited/Complete: 1 View Indication: Chest Pain EP Interpretation: Yes Interpretation: no consolidation, no effusion, no pneumothorax Impression: No acute disease Electronically Signed by: Luzma Rojas DO CT/MRI/US Diagnostic Results CT/MRI/US Diagnostic Results : Impression CT head no acute disease Last Vital Signs Date Time Temp Pulse Resp B/P (MAP) Pulse Ox O2 Delivery O2 Flow Rate FiO2 12/13/18 14:21 61 20 Room Air 12/13/18 14:19 98.1 125/81 98 Status: improved Disposition: XFER [facility] Condition: Improved Referrals: NON PHYSICIAN (PCP) Luzma Rojas DO Dec 13, 2018 14:44
--- NOTE | 2018-12-13 16:06 | NUR ---
ED Nurse Note: called [facility]. report given to Ira TOBAR. provided patient sandwich and water. Dr. Jesus Alberto mak for the patient to eat.
--- NOTE | 2018-12-13 19:17 | NUR ---
HAND-OFF: Report given to Jaguar Le RN.
--- NOTE | 2018-12-13 19:41 | NUR ---
ED Nurse Note: PT is transfered to [facility] with [facility] personnel. all pt status, report and condition has been reported. vital signs are stable. pt is stable for transfer as per MD order. pt has left with all belongings. all report given to SOFIA licona RN and [facility]S personel.
[2018-12-13 19:43] VITALS: BP 141/82
== END 2018-12-13 19:40 | disposition short-term general hospital (02) ==
LOC: EDBD 12:07 → EMR 13:05 → EDUNIT# 13:05 → EMR 19:40
DX: R42 Dizziness and giddiness (principal); I10 Essential (primary) hypertension; G20 Parkinson's disease; Z86.73 Personal history of transient ischemic attack (TIA), and cerebral infarction without residual deficits
CPT/HCPCS: 36415; 70450; 71045; 80053; 81003; 82550; 82553; 83605; 83690; 83880; 84484; 85025; 87040; 93005; 96360; 99284

== ENCOUNTER 2019-11-10 10:34 | Emergency (ER) | payer MEDICARE, MEDICAID ==
[~2019-11-10] VITALS: Ht 180.3 cm; Wt 95.3 kg
[~2019-11-10 10:34] MED LIST changes: +LIPITOR10 MG ORAL; +RIBOFLAVIN100 MG PO; +SINEMET 10-1001 EACH ORAL; +[UNRECOGNIZED DRUG - OTHER] ORAL
--- NOTE | 2019-11-10 10:50 | NUR ---
ED Nurse Note: Pt brought by ambulance due to high blood pressure and MADDOX 8/10 since yesterday. Pt BP 160/80. Pt is alert and orientedx4, ambulatory. Pt is set up on monitor. Pt has hx of stroke, HTN, and parkinsons. Pt is set up on monitor.
[2019-11-10 11:00] VITALS: BP 157/82
--- NOTE | 2019-11-10 11:36 | Diagnostic Imaging Report ---
Indication: Headache Technique: Contiguous 5 mm thick transaxial imaging of the head obtained in a Siemens Sensation [address] scanner. Soft tissue and bone windows generated. Automatic Exposure Control was utilized. Total Dose length Product (DLP): 1426.[address] Dose Index Volume (CTDIvol): 62.7 mGy Comparison: 08/10/2019 Findings: Patchy, nonspecific, white matter hypoattenuation is noted throughout the brain consistent with chronic small vessel disease. Mild atrophy is present, age appropriate. There is no midline shift, edema, acute hemorrhage, mass effect, or abnormal extra-axial fluid collections. Bones and extra osseous soft tissues are unremarkable. Impression: No acute intracranial bleed, mass effect or edema. Nonspecific white matter hypoattenuation probably due to chronic small vessel disease. The CT scanner at [facility] is accredited by the [employer] and the scans are performed using dose optimization techniques as appropriate to a performed exam including Automatic Exposure control.
--- NOTE | 2019-11-10 12:03 | Emergency Room Report ---
History of Present Illness General Chief Complaint: Hypertension Source: Patient, EMS Present Illness HPI Patient is a 74-year-old male past medical history of hypertension and Parkinson 's disease who presents to the ER complaining of elevated blood pressure. Patient states that his home health nurse noted an elevated blood pressure reading and told him to come to the emergency room. Patient said that he had some headache and dizziness. He says that the dizziness resolved but still complains of a mild generalized headache. He denies any blurry vision, chest pain, shortness of breath, focal weakness or hematuria. Patient states that he does not want any blood work done but would like a CAT scan to make sure that there is no acute things going on. Blood pressure has now improved. Patient states he took his blood pressure medicine this morning around 7 or 7:30 AM. Patient was brought in by EMS. Allergies: Coded Allergies: No Known Allergies (Unverified , 08/18/13) Nursing Documentation-[facility] Past Medical History: No History, Except For Hx Cardiac Problems: No - parkison dz Hx Hypertension: Yes Hx Asthma: Yes Hx COPD: Yes - resp failure Hx Diabetes: Yes Hx Cancer: No Hx Gastrointestinal Problems: Yes - CHOLECYSTECTOMY TODAY (09-03-17) Hx Neurological Problems: Yes Hx Cerebrovascular Accident: Yes Hx Dizziness: Yes Hx Syncope: Yes Hx Headaches: Yes Hx Weakness: Yes Review of Systems All Other Systems: negative except mentioned in HPI Physical Exam Vital Signs Date Time Temp Pulse Resp B/P (MAP) Pulse Ox O2 Delivery O2 Flow Rate FiO2 11/10/19 10:27 98.8 70 20 160/80 (106) 98 Room Air 11/10/19 11:00 99 Sp02 EP Interpretation: reviewed, normal General Appearance: no apparent distress, alert, GCS 15, non-toxic Head: normocephalic, atraumatic Eyes: bilateral eye normal inspection, bilateral eye PERRL ENT: hearing grossly normal, normal pharynx, no angioedema, normal voice Neck: full range of motion, supple/symm/no masses Respiratory: chest non-tender, lungs clear, normal breath sounds, speaking full sentences Cardiovascular #1: regular rate, rhythm, no edema Gastrointestinal: normal bowel sounds, non tender, soft, non-distended, no guarding, no rebound Rectal: deferred Genitourinary: normal inspection, no CVA tenderness Musculoskeletal: back normal, normal range of motion, calf tenderness, non- tender Neurologic: alert, motor strength/tone normal, oriented x3, sensory intact, responsive, speech normal, other - tremors Psychiatric: judgement/insight normal, memory normal, mood/affect normal, no suicidal/homicidal ideation Lymphatic: no adenopathy Medical Decision Making Diagnostic Impression: Primary Impression: Headache Additional Impression: hypertension ER Course Patient's blood pressure improved prior to arrival. After discussing risks and benefits of further diagnostics, treatment plans, as well as indications for and risks of admission, the patient is agreeable to being discharged home. I have explained that their evaluation and treatment in the emergency department today is an important step towards them achieving better health but that their evaluation today is not intended to replace further evaluation and treatment by a physician in their local clinic. I have explained that while the current findings suggest no immediate life threatening emergency they will require further evaluation and treatment by a physician of their choice in their area. They understand that it will be necessary for them to review the final reports of their ED visit with their clinic physician. We have reviewed indications for return to the Emergency Department. I have explained that additional time may need to pass and/or additional testing as an outpatient may be necessary before a definitive diagnosis can be made. They tell me they are willing to follow up as instructed within the timeframe I recommend. They appear to understand what we discussed. Additionally they understand that if they are unable to be seen by an outpatient physician they are welcome, and in fact should, return to the Emergency Department for a repeat evaluation. The patient is stable at time of discharge. Last Vital Signs Date Time Temp Pulse Resp B/P (MAP) Pulse Ox O2 Delivery O2 Flow Rate FiO2 11/10/19 11:00 75 21 Room Air 99 11/10/19 11:00 98.8 157/82 99 Disposition: HOME, SELF-CARE Condition: Stable Referrals: [facility] Olesya Webster [facility] Patient Instructions: Hypertension, [id number], General Headache Without Cause, [id number] Ashley Veliz M.D. Nov 10, 2019 12:03
[2019-11-10 13:23] VITALS: BP 140/70
--- NOTE | 2019-11-10 13:25 | NUR ---
discharged home with instruction to follow up with pmd
== END 2019-11-10 13:20 | disposition home or self-care (01) ==
LOC: EDBD 10:34 → EMR 13:02
DX: I10 Essential (primary) hypertension (principal); R51 Headache; G20 Parkinson's disease; E11.9 Type 2 diabetes mellitus without complications; Z90.49 Acquired absence of other specified parts of digestive tract; Z86.73 Personal history of transient ischemic attack (TIA), and cerebral infarction without residual deficits; J44.9 Chronic obstructive pulmonary disease, unspecified
CPT/HCPCS: 70450; 99284